=== PATIENT | female | born 1940 | race Caucasian/White ===

== ENCOUNTER → 2016-08-31 | Outpatient (CLI) | payer MEDICARE, BC ==
--- NOTE | 2016-09-02 10:37 | MM ---
Reason for exam: screening (asymptomatic). Last mammogram was performed 1 year and 5 months ago. History: Patient is postmenopausal. Family history of breast cancer in mother at age 70 and breast cancer in aunt at age 70. Benign stereotactic LETICIA of the right breast, May 2014. Took estrogen for 9 years beginning at age 54. Took progesterone for 9 years beginning at age 54. Physical Findings: A clinical breast exam by your physician is recommended on an annual basis and results should be correlated with mammographic findings. MG 3D Screening Mammo W/Cad Bilateral CC and MLO view(s) were taken. Prior study comparison: April 09, 2015, bilateral MG 3d diag mammo w/cad YASH. October 08, 2014, right breast MG diagnostic mammo RT w CAD. March 13, 2014, bilateral MG screening mammo w CAD. March 06, 2013, bilateral digital screening mammo w/CAD. There are scattered fibroglandular densities. Previous mammotome biopsy within the right breast. No significant changes when compared with prior studies. ASSESSMENT: Negative, BI-RAD 1 RECOMMENDATION: Routine screening mammogram of both breasts in 1 year.
== END | disposition home or self-care (01) ==
LOC: RADMAMWWP 15:16
PROVIDERS: ATTEND Preventive Medicine Public Health & General Preventive Medicine
DX: Z12.31 Encounter for screening mammogram for malignant neoplasm of breast (principal)
CPT/HCPCS: 77063; G0202

== ENCOUNTER → 2016-09-23 | Outpatient (CLI) | payer MEDICARE, BC ==
[2016-09-23 13:00] LABS: Blood Urea Nitrogen 14 mg/dL (7-17); Non-African American GFR(MDRD) >60 (>60 ml/min/1.73 sqM)
[2016-09-23 14:07] LABS: Vitamin B12 830 pg/mL
== END | disposition home or self-care (01) ==
LOC: LABWHC1 12:17
PROVIDERS: ATTEND Psychiatry & Neurology Neurology
DX: G62.9 Polyneuropathy, unspecified (principal)
CPT/HCPCS: 36415; 82565; 82607; 82746; 84520

== ENCOUNTER → 2016-10-12 | Outpatient (CLI) | payer MEDICARE, BC ==
--- NOTE | 2016-10-13 13:59 | MR ---
EXAMINATION TYPE: MR brain wo/w con DATE OF EXAM: 10/12/2016 COMPARISON: Prior MRI report dated 08/31/2015 HISTORY: Falling CONTRAST: Performed utilizing 15 mL intravenous MultiHance gadolinium contrast. TECHNIQUE: Multiplanar, multiecho imaging on a 3.0 Regi magnet is performed through the brain. Stud y is performed within 24 hours of arrival to the hospital. The craniovertebral junction is normal. The pituitary is normal. Diffusion-weighted imaging is performed. No abnormal hyperintensity is present to suggest an acute i ntracranial infarct or acute ischemic change. There are scattered punctate areas of hyperintensity on T2 and Inversion Recovery weighted sequences which are non-specific but can be related to microvascular ischemic changes. Ventricles and sulci are slightly prominent for the patient age. IMPRESSIONS: 1. Atrophy with chronic appearing white matter ischemic type changes.
== END | disposition home or self-care (01) ==
LOC: RADMRIMAIN 10:33
PROVIDERS: ATTEND Psychiatry & Neurology Neurology
DX: D49.6 Neoplasm of unspecified behavior of brain (principal); G45.2 Multiple and bilateral precerebral artery syndromes
CPT/HCPCS: 70553; A9577

== ENCOUNTER → 2017-10-17 | Outpatient (CLI) | payer MEDICARE, BC ==
--- NOTE | 2017-10-19 10:23 | MM ---
Reason for exam: screening (asymptomatic). Last mammogram was performed 1 year and 2 months ago. History: Patient is postmenopausal. Family history of breast cancer in mother at age 70 and breast cancer in aunt at age 70. Benign stereotactic LETICIA of the right breast, May 2014. Took estrogen for 9 years beginning at age 54. Took progesterone for 9 years beginning at age 54. Physical Findings: A clinical breast exam by your physician is recommended on an annual basis and results should be correlated with mammographic findings. MG 3D Screening Mammo W/Cad Bilateral CC and MLO view(s) were taken. Prior study comparison: August 31, 2016, bilateral MG 3d screening mammo w/cad. April 09, 2015, bilateral MG 3d diag mammo w/cad YASH. The breast tissue is heterogeneously dense. This may lower the sensitivity of mammography. Benign appearing bilateral calcifications. Right biopsy marker noted. No significant changes when compared with prior studies. ASSESSMENT: Benign, BI-RAD 2 RECOMMENDATION: Routine screening mammogram of both breasts in 1 year.
== END | disposition home or self-care (01) ==
LOC: RADMAMWWP 14:05
PROVIDERS: ATTEND Family Medicine
DX: Z12.31 Encounter for screening mammogram for malignant neoplasm of breast (principal)
CPT/HCPCS: 77063; 77067

== ENCOUNTER → 2018-10-27 | Outpatient (CLI) | payer MEDICARE, BC ==
--- NOTE | 2018-10-30 10:49 | MM ---
Reason for exam: screening (asymptomatic). Last mammogram was performed 1 year ago. History: Patient is postmenopausal. Family history of breast cancer in mother at age 70 and breast cancer in aunt at age 70. Benign stereotactic LETICIA of the right breast, May 2014. Took estrogen for 9 years beginning at age 54. Took progesterone for 9 years beginning at age 54. Physical Findings: A clinical breast exam by your physician is recommended on an annual basis and results should be correlated with mammographic findings. MG 3D Screening Mammo W/Cad Bilateral CC and MLO view(s) were taken. Prior study comparison: October 17, 2017, bilateral MG 3d screening mammo w/cad. August 31, 2016, bilateral MG 3d screening mammo w/cad. Benign appearing stable bilateral calcifications. Previous mammotome biopsy in the right breast. No significant changes when compared with prior studies. ASSESSMENT: Benign, BI-RAD 2 RECOMMENDATION: Routine screening mammogram of both breasts in 1 year.
== END | disposition home or self-care (01) ==
LOC: RADMAMWWP 10:49
PROVIDERS: ATTEND Family Medicine
DX: Z12.31 Encounter for screening mammogram for malignant neoplasm of breast (principal)
CPT/HCPCS: 77063; 77067

== ENCOUNTER → 2019-12-11 | Outpatient (CLI) | payer MEDICARE, BC ==
--- NOTE | 2019-12-12 11:55 | MM ---
Reason for exam: screening (asymptomatic). Last mammogram was performed 1 year and 1 month ago. History: Patient is postmenopausal. Family history of breast cancer in mother at age 70 and breast cancer in aunt at age 70. Benign stereotactic LETICIA of the right breast, May 2014. Took estrogen for 9 years beginning at age 54. Took progesterone for 9 years beginning at age 54. Physical Findings: A clinical breast exam by your physician is recommended on an annual basis and results should be correlated with mammographic findings. MG 3D Screening Mammo W/Cad Bilateral CC and MLO view(s) were taken. Prior study comparison: October 27, 2018, bilateral MG 3d screening mammo w/cad. October 17, 2017, bilateral MG 3d screening mammo w/cad. The breast tissue is heterogeneously dense. This may lower the sensitivity of mammography. No significant changes when compared with prior studies. ASSESSMENT: Benign, BI-RAD 2 RECOMMENDATION: Routine screening mammogram of both breasts in 1 year.
== END | disposition home or self-care (01) ==
LOC: RADMAMWWP 10:37
PROVIDERS: ATTEND Family Medicine
DX: Z12.31 Encounter for screening mammogram for malignant neoplasm of breast (principal)
CPT/HCPCS: 77063; 77067

== ENCOUNTER → 2021-01-13 | Outpatient (CLI) | payer MEDICARE, BC ==
--- NOTE | 2021-01-14 12:24 | MM ---
Reason for exam: screening (asymptomatic). Last mammogram was performed 1 year and 1 month ago. History: Patient is postmenopausal. Family history of breast cancer in mother at age 70 and breast cancer in aunt at age 70. Benign stereotactic core biopsy of the right breast, May 2014. Took estrogen for 9 years beginning at age 54. Took progesterone for 9 years beginning at age 54. Physical Findings: A clinical breast exam by your physician is recommended on an annual basis and results should be correlated with mammographic findings. MG 3D Screening Mammo W/Cad Bilateral CC and MLO view(s) were taken. Prior study comparison: December 11, 2019, bilateral MG 3d screening mammo w/cad. October 27, 2018, bilateral MG 3d screening mammo w/cad. October 17, 2017, bilateral MG 3d screening mammo w/cad. The breast tissue is heterogeneously dense. This may lower the sensitivity of mammography. There are benign appearing round, vascular calcifications bilaterally. Previous mammotome biopsy in the right breast. There is no discrete abnormality. ASSESSMENT: Benign, BI-RAD 2 RECOMMENDATION: Routine screening mammogram of both breasts in 1 year.
== END | disposition home or self-care (01) ==
LOC: RADMAMWWP 10:53
PROVIDERS: ATTEND Internal Medicine
DX: Z12.31 Encounter for screening mammogram for malignant neoplasm of breast (principal); Z78.0 Asymptomatic menopausal state; Z80.3 Family history of malignant neoplasm of breast
CPT/HCPCS: 77063; 77067

== ENCOUNTER 2022-01-01 10:30 | Inpatient (IN) | payer MEDICARE, BC ==
--- NOTE | 2022-01-01 10:45 | ED ---
Fall HPI - General Chief Complaint: Fall Stated Complaint: Fall Time Seen by Provider: 01/01/22 10:37 Source: patient, EMS, RN notes reviewed - History of Present Illness Initial Comments: Patient is a pleasant 81-year-old female presenting to the emergency room via EMS after turning in her kitchen earlier today awkwardly causing her to miss stepped and fall. She reports falling onto her left shoulder elbow bracing herself with her left wrist and falling onto her left hip. She has significant pain in all of those extremities. She also hit her head. She denies any dizziness, loss of consciousness pre-or post event, or new weakness. She is a past medical history significant for Parkinson's disease and reports falling occasionally. In addition to Parkinson's disease she has a past medical history significant for hyperlipidemia, hypertension, recurrent UTIs along with osteoarthritis with multiple joint replacements. - Related Data Home Medications Medication Instructions Recorded Confirmed DULoxetine HCL [Cymbalta] 30 mg PO BID 10/03/13 09/01/15 Pravastatin Sodium [Pravachol] 80 mg PO HS 10/03/13 09/01/15 amLODIPine [Norvasc] 10 mg PO DAILY 10/03/13 09/01/15 clonazePAM [KlonoPIN] 0.25 mg PO BID PRN 10/03/13 09/01/15 lamoTRIgine [LaMICtal] 100 mg PO BID 10/03/13 09/01/15 Aspirin EC [Ecotrin Low Dose] 81 mg PO DAILY 08/27/15 09/01/15 Budesonide [Budesonide EC] 9 mg PO QAM 08/27/15 09/01/15 Calcium & Magnesium (Unknown Dose) 1 tab PO DAILY 08/27/15 09/01/15 Meclizine [Antivert] 25 mg PO DIRECTED PRN 08/27/15 09/01/15 Multivitamins, Thera [Multivitamin 1 tab PO DAILY 08/27/15 09/01/15 (formulary)] Vitamin D (Unknown Dose) 1 tab PO DAILY 08/27/15 09/01/15 Previous Rx's Medication Instructions Recorded Docusate [Colace] 100 mg PO BID #60 capsule 09/02/15 HYDROcodone/APAP 5-325MG [[place] 1 - 2 each PO Q4-6H PRN #90 tab 09/02/15 5-325] Warfarin [Coumadin] 2.5 mg PO DAILY #1 tab 09/02/15 Ondansetron Odt [Zofran Odt] 4 mg PO Q8HR PRN 7 Days #21 tab 01/01/22 traMADol HCL 50 mg PO Q6H 3 Days #12 tab 01/01/22 Allergies Allergy/AdvReac Type Severity Reaction Status Date / Time morphine Allergy Nausea & Verified 01/01/22 10:46 Vomiting Sulfa (Sulfonamide AdvReac Unknown Nausea & Verified 01/01/22 10:46 Antibiotics) Vomiting Review of Systems ROS Statement: Those systems with pertinent positive or pertinent negative responses have been documented in the HPI. ROS Other: All systems not noted in ROS Statement are negative. Past Medical History Past Medical History: Hyperlipidemia, Hypertension, Osteoarthritis (OA), Renal Disease Additional Past Medical History / Comment(s): CHRONIC UTI, BLADDER LEAKAGE-WEARS PADS., OCCASIONAL VERTIGO,COLITIS, BROKE HIP dec 2013, BACK & LEFT LEG PAIN., HX OF FX RIGHT SHOULDER. USES CANE FOR YASH. LEGS NEUROPATHY. STATES FALLS FREQUENTLY History of Any Multi-Drug Resistant Organisms: None Reported Past Surgical History: Bladder Surgery, Hysterectomy, Joint Replacement, Orthopedic Surgery, Tonsillectomy, Tubal Ligation Additional Past Surgical History / Comment(s): BLADDER SUSPENSION W/ CYSTOCELE & RECTOCELE , LEFT SHOULDER SURGERY, LEFT HIP W/HARDWARE (2013). Past Anesthesia/Blood Transfusion Reactions: Motion Sickness Past Psychological History: Anxiety Past Alcohol Use History: Occasional - Past Family History Mother Family Medical History: Cancer Additional Family Medical History / Comment(s): BREAST & ESOPHAGUS CANCER General Exam General appearance: alert, in no apparent distress Head exam: Present: normocephalic, other (laceration left scalp post auricle) Eye exam: Present: normal appearance, PERRL, EOMI. Absent: scleral icterus, conjunctival injection, periorbital swelling ENT exam: Present: normal exam, mucous membranes moist Neck exam: Present: normal inspection. Absent: tenderness, lymphadenopathy Respiratory exam: Present: normal lung sounds bilaterally. Absent: respiratory distress, wheezes, rales, rhonchi, stridor Cardiovascular Exam: Present: regular rate, normal rhythm, normal heart sounds. Absent: systolic murmur, diastolic murmur, rubs, gallop, clicks GI/Abdominal exam: Present: soft, normal bowel sounds. Absent: distended, tenderness, guarding, rebound, rigid Left Shoulder Exam: Present: tenderness. Absent: full ROM, swelling, laceration, erythema Elbow exam: Present: tenderness, swelling, effusion. Absent: full ROM Forearm Wrist exam: Present: tenderness. Absent: full ROM, swelling, abrasion, deformity, crepitus, dislocation Vascular: Absent: vascular compromise Back exam: Present: normal inspection Neurological exam: Present: alert, oriented X3, CN II-XII intact Psychiatric exam: Present: normal affect, normal mood Skin exam: Present: other (Ecchymosis left elbow and left hip. Laceration scalp.). Absent: rash Course Vital Signs 01/01/22 01/01/22 01/01/22 10:34 13:31 15:15 Temperature 99.0 F Pulse Rate 72 71 73 Respiratory 18 18 18 Rate Blood Pressure 130/80 154/85 126/75 O2 Sat by Pulse 98 96 96 Oximetry Procedures - Orthopedic Splinting/Casting Injury #1 Side: left Upper Extremity Injury Location: elbow Upper Extremity Immobilizer: sling/shoulder immobilizer, posterior splint Medical Decision Making - Medical Decision Making 81-year-old female presenting via EMS after stumble and fall in her kitchen earlier today. She fell onto her left side and has pain in her left hip left wrist and left elbow left shoulder along with a laceration to her head. She is on aspirin. Will check CBC, CMP, PT/INR along with imaging of her left wrist, left elbow, left shoulder, head and neck. She denies any analgesic needs. CBC shows anemia above baseline hemoglobin. significant chemistry abnormalities. CT of brain and C-spine negative for fractures to C-spine no intracranial hemorrhage or midline shift. X-ray left shoulder and left wrist without acute fractures. X-ray left elbow shows acute displaced commuted fracture of the olecranon without dislocation. Suspect impacted transverse fracture through the left radial head without dislocation. Pain from x-rays to left elbow caused nausea. Zofran given with good relief. Continues to deny analgesic needs. Dr. Etienne called regarding fracture to the left elbow. He has requested computed tomography scan of left elbow to be completed prior to discharge and for patient to follow-up with him in the office next week. Replace posterior splint on left elbow along with arm sling. Will discharge home with tramadol and Zofran to utilize for pain and nausea. Case discussed with Dr. Andrews. Attempted to stand and ambulate patient to dress and evaluate for discharge and patient became dizzy and was escorted to the floor by the tech helping her address. Discharge home will be held. Observation admission was accepted and at this time will hold consult or so. Will order orthostatic blood pressures and Her home medications. - Lab Data Result diagrams: 01/01/22 10:52 01/01/22 10:52 Lab Results 01/01/22 01/01/22 01/01/22 Range/Units 10:52 10:52 10:52 WBC 7.1 (3.8-10.6) k/uL RBC 3.31 L (3.80-5.40) m/uL Hgb 11.0 L (11.4-16.0) gm/dL Hct 33.6 L (34.0-46.0) % MCV 101.3 H (80.0-100.0) fL MCH 33.2 (25.0-35.0) pg MCHC 32.7 (31.0-37.0) g/dL RDW 12.0 (11.5-15.5) % Plt Count 207 (150-450) k/uL MPV 7.5 Neutrophils % 81 % Lymphocytes % 9 % Monocytes % 6 % Eosinophils % 2 % Basophils % 0 % Neutrophils # 5.8 (1.3-7.7) k/uL Lymphocytes # 0.7 L (1.0-4.8) k/uL Monocytes # 0.4 (0-1.0) k/uL Eosinophils # 0.1 (0-0.7) k/uL Basophils # 0.0 (0-0.2) k/uL PT 10.8 (9.0-12.0) sec INR 1.0 (<1.2) Sodium 137 (137-145) mmol/L Potassium 3.7 (3.5-5.1) mmol/L Chloride 101 (98-107) mmol/L Carbon Dioxide 26 (22-30) mmol/L Anion Gap 10 mmol/L BUN 18 H (7-17) mg/dL Creatinine 0.73 (0.52-1.04) mg/dL Est GFR (CKD-EPI)AfAm >90 (>60 ml/min/1.73 sqM) Est GFR (CKD-EPI)NonAf 78 (>60 ml/min/1.73 sqM) Glucose 111 H (74-99) mg/dL POC Glucose (mg/dL) (70-110) mg/dL POC Glu Python Developer ID Calcium 9.7 (8.4-10.2) mg/dL Total Bilirubin 0.6 (0.2-1.3) mg/dL AST 32 (14-36) U/L ALT 10 (4-34) U/L Alkaline Phosphatase 50 (38-126) U/L Total Protein 6.9 (6.3-8.2) g/dL Albumin 4.1 (3.5-5.0) g/dL 01/01/22 Range/Units 15:48 WBC (3.8-10.6) k/uL RBC (3.80-5.40) m/uL Hgb (11.4-16.0) gm/dL Hct (34.0-46.0) % MCV (80.0-100.0) fL MCH (25.0-35.0) pg MCHC (31.0-37.0) g/dL RDW (11.5-15.5) % Plt Count (150-450) k/uL MPV Neutrophils % % Lymphocytes % % Monocytes % % Eosinophils % % Basophils % % Neutrophils # (1.3-7.7) k/uL Lymphocytes # (1.0-4.8) k/uL Monocytes # (0-1.0) k/uL Eosinophils # (0-0.7) k/uL Basophils # (0-0.2) k/uL PT (9.0-12.0) sec INR (<1.2) Sodium (137-145) mmol/L Potassium (3.5-5.1) mmol/L Chloride (98-107) mmol/L Carbon Dioxide (22-30) mmol/L Anion Gap mmol/L BUN (7-17) mg/dL Creatinine (0.52-1.04) mg/dL Est GFR (CKD-EPI)AfAm (>60 ml/min/1.73 sqM) Est GFR (CKD-EPI)NonAf (>60 ml/min/1.73 sqM) Glucose (74-99) mg/dL POC Glucose (mg/dL) 143 H (70-110) mg/dL POC Glu Python Developer ID Sherry Rutledge Calcium (8.4-10.2) mg/dL Total Bilirubin (0.2-1.3) mg/dL AST (14-36) U/L ALT (4-34) U/L Alkaline Phosphatase (38-126) U/L Total Protein (6.3-8.2) g/dL Albumin (3.5-5.0) g/dL - Radiology Data Radiology results: report reviewed, image reviewed X-ray left elbow finding acute displaced comminuted fracture of the olecranon without dislocation. There is suspected impacted transverse fracture through the left radial head without dislocation. X-ray left shoulder complete shows chronic rotator cuff tear left shoulder. Left shoulder prosthesis with advanced degenerative changes. No acute fracture or dislocation. X-ray hips bilaterally and AP pelvis shows bilaterally hips are intact no acute fractures are evident. Left hip prosthesis in place. X-ray left wrist complete shows no acute displaced fracture of the left wrist. CT brain and C-spine without contrast shows no acute fracture or dislocation evident in the cervical spine. No acute intracranial hemorrhage or midline shift. Disposition Clinical Impression: Fall, Fracture of olecranon process, left, closed Disposition: ADMITTED IP TO THIS HOSP Condition: Stable Prescriptions: traMADol HCL 50 mg PO Q6H 3 Days #12 tab Ondansetron Odt [Zofran Odt] 4 mg PO Q8HR PRN 7 Days #21 tab PRN Reason: Is patient prescribed a controlled substance at d/c from ED?: Yes Referrals: Lux Michaels MD [Primary Care Provider] - 1-2 days Reece Etienne DO [Doctor of Osteopathic Medicine] - 01/05/22 Time of Disposition: 16:21
[2022-01-01 11:03] LABS: Basophils % (A) 0 %; Eosinophils # (A) 0.1 k/uL (0-0.7); Eosinophils % (A) 2 %; HCT 33.6 % (34.0-46.0); Lymphocytes # (A) 0.7 k/uL (1.0-4.8); Lymphocytes % (A) 9 %; MCH 33.2 pg (25.0-35.0); MCHC 32.7 g/dL (31.0-37.0); MCV 101.3 fL (80.0-100.0); Mean Platelet Volume 7.5; Monocytes # (A) 0.4 k/uL (0-1.0); Monocytes % (A) 6 %; Neutrophils # (A) 5.8 k/uL (1.3-7.7); Neutrophils % (A) 81 %; Platelet Count 207 k/uL (150-450); RBC 3.31 m/uL (3.80-5.40); WBC 7.1 k/uL (3.8-10.6)
[2022-01-01 11:12] LABS: Prothrombin Time 10.8 sec (9.0-12.0)
[2022-01-01 11:25] LABS: ALT 10 U/L (4-34); AST 32 U/L (14-36); African American GFR (CKD) >90 (>60 ml/min/1.73 sqM); Albumin 4.1 g/dL (3.5-5.0); Alkaline Phosphatase 50 U/L (38-126); Anion Gap 10 mmol/L; Blood Urea Nitrogen 18 mg/dL (7-17); Calcium 9.7 mg/dL (8.4-10.2); Carbon Dioxide 26 mmol/L (22-30); Chloride 101 mmol/L (98-107); Glucose 111 mg/dL (74-99); Non-African American GFR(CKD) 78 (>60 ml/min/1.73 sqM); Potassium 3.7 mmol/L (3.5-5.1); Sodium 137 mmol/L (137-145); Total Bilirubin 0.6 mg/dL (0.2-1.3); Total Protein 6.9 g/dL (6.3-8.2)
--- NOTE | 2022-01-01 11:34 | CT ---
EXAMINATION TYPE: CT brain adan stubbs DATE OF EXAM: 01/01/2022 COMPARISON: NONE HISTORY: Fall injury with headache and neck pain CT DLP: 1270.5 mGycm. Automated Exposure Control for Dose Reduction was Utilized. TECHNIQUE: CT scan of the head and cervical spine are performed without contrast. FINDINGS: There is no acute intracranial hemorrhage or midline shift identified. Mild to moderate v entricular and sulcal prominence. Moderate to severe low-attenuation in the deep and periventricular white matter. The calvarium is intact. The visualized sinuses are clear. Nonvisualization of bilater al lens likely product of prior bilateral cataract surgery. Cervical spine is visualized in its entirety from C1 through upper thoracic levels and demonstrates d extroconvex scoliosis centered in the midthoracic spine without evidence of acute fracture or disloca tion. Prevertebral soft tissue appears within normal limits. The C1-C2 articulation is within laura l limits on the coronal images. Reversal of normal cervical curvature on sagittal images. Slight gra de 1 anterolisthesis C2 on C3 and C3 on C4 along with C7 on T1. More prominent grade 1 anterolisthesi s C4 on C5. Vertebral body heights are maintained. Moderate disc space narrowing C5-C6 and C6-C7 leve ls with moderate to advanced spurring. Posterior calcified disc herniations and spurring of the anterior thecal sac at C5-C6 and C6-C7 level s on sagittal and axial images. Thyroid gland appears within normal limits. Lung apices show no pneum othorax. Note is made of old healed posterior right fifth rib fracture axial image 115. IMPRESSION: 1. There is no acute fracture or dislocation evident in the cervical spine. 2. No acute intracranial hemorrhage or midline shift is seen.
[2022-01-01] MEDS ORDERED: LIDOCAINE 1% INJ 10MG/ML (20 ML MDV) SQ STA (11:51)
--- NOTE | 2022-01-01 12:15 | XR ---
EXAMINATION TYPE: XR wrist complete LT DATE OF EXAM: 01/01/2022 CLINICAL HISTORY: Fall injury with pain TECHNIQUE: Frontal, lateral and oblique images of the left wrist are obtained. 4 view scaphoid view is performed. COMPARISON: None FINDINGS: Osseous structures are demineralized which is noted to lower radiographic sensitivity. Ther e is overlying metallic button at level of the distal radius with old healed fracture deformity. Mode [id number] narrowing and spurring at the base of the first metacarpal. No acute displaced fractur e is seen. Narrowing and possible some ossific fusion of the capitate and hamate bones. IMPRESSION: There is no acute displaced fracture in the left wrist.
--- NOTE | 2022-01-01 12:20 | XR ---
EXAMINATION TYPE: XR Hip Bilateral and AP pelvis DATE OF EXAM: 01/01/2022 COMPARISON: None HISTORY: Fall, pain TECHNIQUE: AP pelvis and two-view right hip FINDINGS: There is a left hip prosthesis. Sacroiliac joints and symphysis pubis appear normal. No acu te fractures are evident. Femoral head articulates with the acetabulum. Bilateral hips appear intact. No acute fractures are evident. IMPRESSION: 1. No acute osseous abnormalities bilateral hips
--- NOTE | 2022-01-01 12:27 | XR ---
EXAMINATION TYPE: XR shoulder complete LT DATE OF EXAM: 01/01/2022 COMPARISON: NONE HISTORY: Pain TECHNIQUE: Shoulder examined in 2 projections FINDINGS: There is a left humeral prosthesis. The humeral component is elevated in relation to the glenoid sugg esting underlying chronic rotator cuff tear. Degenerative changes and ossifications are about the lef t shoulder. The acromio-clavicular junction is normal. No acute fractures or dislocations are evident. A follow up study can be performed 7-10 days from acute trauma for continued pain. IMPRESSION: 1. Chronic rotator cuff tear left shoulder. 2. Left shoulder prosthesis with advanced degenerative changes at the left shoulder
[2022-01-01] MEDS ORDERED: ONDANSETRON 4 MG/2 ML VIAL IVP STA (13:24)
--- NOTE | 2022-01-01 13:44 | XR ---
EXAMINATION TYPE: XR elbow limited LT DATE OF EXAM: 01/01/2022 CLINICAL HISTORY: Falling injury with pain TECHNIQUE: Frontal and lateral images of the left elbow are obtained. COMPARISON: None FINDINGS: There is acute displaced comminuted fracture of the olecranon without dislocation. There i s suspected impacted transverse fracture through the left radial head without dislocation. Associated abnormal fat pad sign with anterior bowing is seen. There is focal oval subcutaneous prominence over the olecranon suspicious for subcutaneous hematoma. IMPRESSION: As above.
[2022-01-01 15:49] LABS: Glucose,Whole Blood 143 mg/dL (70-110)
--- NOTE | 2022-01-01 15:49 | CT ---
EXAMINATION TYPE: CT elbow LT wo con DATE OF EXAM: 01/01/2022 COMPARISON: Left elbow x-ray earlier today HISTORY: Olecranon fx. Abnormal x-ray. Fracture after fall injury. CT DLP: 339.9 mGycm Automated exposure control for dose reduction was used. FINDINGS: Evaluation suboptimal as patient unable to extend the elbow joint for ideal imaging. There is acute comminuted displaced fracture through the olecranon with several small fracture fragme nts involving the anterior aspect and a slightly displaced transverse intra-articular fracture throug h the posterior portion. Ulnohumeral articulation grossly maintained. There is an impacted transverse fracture through the radial head confirmed. Radial head articulation grossly maintained. No acute fracture in the distal humerus clearly seen. Moderate subcutaneous edema and hematoma along the dorsal aspect is noted. IMPRESSION: As above. Findings correlate with recent x-rays. Type C AO Classification.
[2022-01-01] MEDS ORDERED: ACETAMINOPHEN TAB 325 MG TAB PO PRN (16:43)
[2022-01-01] MEDS ORDERED: ONDANSETRON 4 MG/2 ML VIAL IVP PRN (16:43)
[2022-01-01] MEDS ORDERED: NALOXONE 0.4 MG/ML 1 ML VIAL IV PRN ×2 (16:43→16:48)
[2022-01-01] MEDS ORDERED: DONEPEZIL 10 MG TAB PO STA (16:50)
[2022-01-01] MEDS ORDERED: amLODIPine 5 MG TAB PO STA (16:56)
[2022-01-01] MEDS ORDERED: PRAVASTATIN SODIUM 80 MG TAB PO STA (16:56)
[2022-01-01] MEDS ORDERED: MECLIZINE 25 MG TAB PO PRN (16:59)
[2022-01-01] MEDS: SODIUM CHLORIDE 0.9% 1,000 ML IV SCH (17:13)
--- NOTE | 2022-01-01 17:23 | P.HPIM ---
History of Present Illness H&P Date: 01/01/22 Patient is an 81-year-old female with PMH of Parkinson's disorder, anxiety, hypertension, dyslipidemia, chronic UTIs that presents the ED after mechanical fall. Patient reports turning in her kitchen earlier awkwardly which caused her to lose her footing and fall. She fell onto her left shoulder and elbow bracing herself with her left wrist. She did not have any dizziness or syncopal episode at that time. She was worked up in the ED. CT head was negative for acute process. X-ray of the wrist, hip, shoulder was negative. CT left elbow showed acute comminuted displaced fracture through the olecranon with several small fracture fragments involving the anterior aspect and a slightly displaced transverse intra-articular fracture through the posterior portion. Orthopedic surgery was curb sided in the ED and recommended outpatient follow-up. Her elbow is casted and she was placed in a sling. As she stood up, patient reports feeling lightheaded. Lightheadedness was associated with nausea. She lowered herself to the ground. She denies any syncopal episode or head trauma. She denies any headache, lower extremity edema, vomiting, fever or chills, cough, chest pain, shortness of breath, palpitations, changes in urination or bowel habits. No changes in appetite or weight. She denies any numbness/weakness/tingling of extremities. Her vital signs have been stable. Review of systems was performed and is negative except above. General: [non toxic], [no distress], [appears at stated age] Derm: [warm], [dry] Head: [atraumatic], [normocephalic], [symmetric] Eyes: [EOMI], [no lid lag], [anicteric sclera] Mouth: [no lip lesion], [mucus membranes moist] Cardiovascular: [S1S2 reg], [no murmur] Lungs: [CTA bilateral], [no rhonchi, no rales] , [no accessory muscle use] Abdominal: [soft], [ nontender to palpation], [no guarding], [no appreciable organomegaly] Ext: [no gross muscle atrophy], [resting tremor], [no contractures], [left upper extremity casted and in a sling] Neuro: [ CN II-XI grossly intact], [no focal neuro deficits] Psych: [Alert], [oriented], [appropriate affect] #Lightheadedness #Left elbow fracture #Macrocytic anemia #Elevated BUN Chronic conditions: Parkinson's disorder, anxiety and depression, hypertension, dyslipidemia Patient presents with lightheadedness she went from a laying to a standing position. She did not lose consciousness. She reports no head trauma in the ED. Orthostatic vital signs will be ordered. Patient be placed on telemetry monitoring. Fall precautions ordered. Start normal saline at 75 mL per hour. PT and OT will be consulted. Patient will need to follow-up with orthopedic surgery in the outpatient setting. Obtain B12 and folate for macrocytosis. Elevated BUN likely due to dehydration. Plans to repeat BMP tomorrow morning after IV hydration. Restart Sinemet and Rivastigmine for history of Parkinsons. Restart Lamictal and Cymbalta with Klonopin as needed for anxiety and depression. Restart amlodipine for history of hypertension. Her pravastatin for history of dyslipidemia. DVT prophylaxis: [Heparin] Discussed with: [Patient, ED physician, family] Anticipated discharge: [1-2 days] Anticipated discharge place: [Home] A total of [35] minutes was spent on the care of this complex patient more than 50% of the time was spent in counseling and care coordination. Patient injured her decision maker if she can't make decisions for herself. Patient would like to be full code. Past Medical History Past Medical History: Hyperlipidemia, Hypertension, Osteoarthritis (OA), Renal Disease Additional Past Medical History / Comment(s): CHRONIC UTI, BLADDER LEAKAGE-WEARS PADS., OCCASIONAL VERTIGO,COLITIS, BROKE HIP dec 2013, BACK & LEFT LEG PAIN., HX OF FX RIGHT SHOULDER. USES CANE FOR YASH. LEGS NEUROPATHY. STATES FALLS FR EQUENTLY History of Any Multi-Drug Resistant Organisms: None Reported Past Surgical History: Bladder Surgery, Hysterectomy, Joint Replacement, Orthope dic Surgery, Tonsillectomy, Tubal Ligation Additional Past Surgical History / Comment(s): BLADDER SUSPENSION W/ CYSTOCELE & RECTOCELE , LEFT SHOULDER SURGERY, LEFT HIP W/HARDWARE (2013). Past Anesthesia/Blood Transfusion Reactions: Motion Sickness Past Psychological History: Anxiety Past Alcohol Use History: Occasional - Past Family History Mother Family Medical History: Cancer Additional Family Medical History / Comment(s): BREAST & ESOPHAGUS CANCER Medications and Allergies Home Medications Medication Instructions Recorded Confirmed Type Pravastatin Sodium [Pravachol] 80 mg PO HS 10/03/13 09/01/15 History lamoTRIgine [LaMICtal] 100 mg PO BID 10/03/13 09/01/15 History Aspirin EC [Ecotrin Low Dose] 81 mg PO DAILY 08/27/15 09/01/15 History Ascorbic Acid [Vitamin C] 500 mg PO DAILY 01/01/22 01/01/22 History Calcium Carbonate [Calcium] 600 mg PO DAILY 01/01/22 01/01/22 History Carbidopa/Levodopa 1 tab PO QID@07,11,15,19 01/01/22 01/01/22 History [Carbidopa-Levodopa 25-100 Tab] DULoxetine HCL [Cymbalta] 60 mg PO HS 01/01/22 01/01/22 History Meloxicam [Mobic] 15 mg PO DAILY 01/01/22 01/01/22 History Menthol-Zinc Oxide Oint 1 applic TOPICAL BID 01/01/22 01/01/22 History [Calmoseptine Ointment] Multivit-Min/Iron/Folic/Lutein 1 tab PO DAILY 01/01/22 01/01/22 History [Centrum Silver Women Tablet] Omeprazole 40 mg PO DAILY 01/01/22 01/01/22 History Ondansetron Odt [Zofran Odt] 4 mg PO Q8HR PRN 7 Days #21 tab 01/01/22 Rx Oxybutynin Chloride 5 mg PO BID 01/01/22 01/01/22 History Rivastigmine Tartrate [Exelon] 3 mg PO BID 01/01/22 01/01/22 History Trimethoprim [Trimpex] 100 mg PO DAILY 01/01/22 01/01/22 History amLODIPine [Norvasc] 5 mg PO DAILY 01/01/22 01/01/22 History clonazePAM [Klonopin ODT] 0.25 mg PO BID PRN 01/01/22 01/01/22 History dexAMETHasone [Decadron Elixir] 0.5 mg PO BID PRN 01/01/22 01/01/22 History polyethylene glycoL 3350 [Miralax] 17 gm PO DAILY PRN 01/01/22 01/01/22 History traMADol HCL 50 mg PO Q6H 3 Days #12 tab 01/01/22 Rx Allergies Allergy/AdvReac Type Severity Reaction Status Date / Time morphine Allergy Nausea & Verified 01/01/22 16:59 Vomiting Sulfa (Sulfonamide AdvReac Unknown Nausea & Verified 01/01/22 16:59 Antibiotics) Vomiting mesalamine [From Lialda] AdvReac Hallucinations, Verified 01/01/22 16:59 aggression Physical Exam Vitals: Vital Signs Temp Pulse Resp BP Pulse Ox 01/01/22 15:15 73 18 126/75 96 01/01/22 13:31 71 18 154/85 96 01/01/22 10:34 99.0 F 72 18 130/80 98 Intake and Output 01/01/22 01/01/22 01/01/22 06:59 14:59 22:59 Other: Weight 57.606 kg Results CBC & Chem 7: 01/01/22 10:52 01/01/22 10:52 Labs: Abnormal Lab Results - Last 24 Hours (Table) 01/01/22 01/01/22 01/01/22 Range/Units 10:52 10:52 15:48 RBC 3.31 L (3.80-5.40) m/uL Hgb 11.0 L (11.4-16.0) gm/dL Hct 33.6 L (34.0-46.0) % MCV 101.3 H (80.0-100.0) fL Lymphocytes # 0.7 L (1.0-4.8) k/uL BUN 18 H (7-17) mg/dL Glucose 111 H (74-99) mg/dL POC Glucose (mg/dL) 143 H (70-110) mg/dL
[2022-01-01] MEDS: clonazePAM 0.5 MG TAB PO PRN (17:28)
[2022-01-01] MEDS: traMADol 50 MG TAB PO PRN (17:32)
[2022-01-01] MEDS ORDERED: CARBIDOPA-LEVODOPA 25-100 MG 1 EACH TAB PO ONE (18:00)
[2022-01-01] MEDS: CARBIDOPA-LEVODOPA 25-100 MG 1 EACH TAB PO SCH (21:46)
[2022-01-01] MEDS: lamoTRIgine 100 MG TAB PO SCH (21:46)
[2022-01-01] MEDS: HEPARIN SODIUM,PORCINE/PF 5,000 UNIT/0.5 ML SYRINGE SQ SCH (21:46)
[2022-01-01] MEDS: OXYBUTYNIN CHLORIDE 5 MG TAB PO SCH (21:46)
[2022-01-02] MEDS: traMADol 50 MG TAB PO PRN (01:19)
[2022-01-02] MEDS: clonazePAM 0.5 MG TAB PO PRN ×2 (06:25→17:25)
[2022-01-02] MEDS: PANTOPRAZOLE 40 MG TABLET PO SCH (06:25)
[2022-01-02] MEDS ORDERED: DONEPEZIL 10 MG TAB PO SCH (09:00)
[2022-01-02] MEDS: amLODIPine 5 MG TAB PO SCH (09:21)
[2022-01-02] MEDS: OXYBUTYNIN CHLORIDE 5 MG TAB PO SCH ×2 (09:21→20:52)
[2022-01-02] MEDS: lamoTRIgine 100 MG TAB PO SCH ×2 (09:21→20:52)
[2022-01-02] MEDS: CARBIDOPA-LEVODOPA 25-100 MG 1 EACH TAB PO SCH ×4 (09:21→20:52)
[2022-01-02] MEDS: ASPIRIN 81 MG PO SCH (09:21)
[2022-01-02 10:38] LABS: Glucose,Whole Blood 127 mg/dL (70-110)
[2022-01-02 10:52] LABS: Basophils % (A) 0 %; Eosinophils # (A) 0.1 k/uL (0-0.7); Eosinophils % (A) 2 %; HCT 28.6 % (34.0-46.0); Lymphocytes # (A) 0.9 k/uL (1.0-4.8); Lymphocytes % (A) 16 %; MCH 32.9 pg (25.0-35.0); MCHC 32.4 g/dL (31.0-37.0); MCV 101.7 fL (80.0-100.0); Mean Platelet Volume 8.1; Monocytes # (A) 0.5 k/uL (0-1.0); Monocytes % (A) 9 %; Neutrophils # (A) 4.1 k/uL (1.3-7.7); Neutrophils % (A) 72 %; Platelet Count 191 k/uL (150-450); RBC 2.81 m/uL (3.80-5.40); RDW 12.1 % (11.5-15.5); WBC 5.7 k/uL (3.8-10.6)
[2022-01-02 10:56] LABS: HGB 9.3 gm/dL (11.4-16.0)
[2022-01-02 11:08] LABS: Potassium 3.9 mmol/L (3.5-5.1)
--- NOTE | 2022-01-02 14:47 | P.PN ---
Subjective Hospital course: 81-year-old female with past medical history of Parkinson's, anxiety, hypertension, dyslipidemia, chronic UTIs presented after a fall. She sustained a left olecranon fracture. Her elbow was casted and placed in a sling, and patient will follow-up with orthopedic surgery as an outpatient. However, while in the emergency as well as on the floors, patient has been complaining of lightheadedness/presyncopal episodes each time she stands. Subjective: Patient seen and examined at bedside. She claims that she still has pain at the left elbow which time she moves. She continues to have lightheadedness after standing. Overnight she did require straight cath or acute urinary retention. She denies any nausea, vomiting, headache, abdominal pain, diarrhea or constipation fevers, chills, chest pain, shortness of breath, palpitations. Pertinent positives and negatives as discussed above, a complete review of systems was performed and all other systems are negative. Vital signs reviewed. General: nontoxic, no distress, appears at stated age Derm: warm, dry Head: atraumatic, normocephalic, symmetric Eyes: EOMI, no lid lag, anicteric sclera Mouth: no lip lesion, mucus membranes moist Cardiovascular: S1S2 reg, no murmur Lungs: Minimal rales at the bases bilaterally, no accessory muscle use Abdominal: soft, nontender to palpation, no guarding, no appreciable organ omegaly Ext: no gross muscle atrophy, trace peripheral edema, no contractures Neuro: CN II-XI grossly intact, no focal neuro deficits Psych: Alert, oriented, appropriate affect Assessment and plan: Presyncope Elevated BUN Status post fall Left elbow fracture -Negative orthostatic vitals -On IV fluids for elevated BUN -Fall precautions -PT/OT consulted -Unsure if presyncope related to cardiac or autonomic dysfunction -will consult neurology and obtain echocardiogram Macrocytic anemia -B12 and folic acid pending F: PO E: replete PRN N: Heart healthy A: With assistance DVT ppx: heparin SQ Full code Dispo: Patient is currently unsafe discharge given significant fall risk. She requires further workup for ongoing presyncope/lightheadedness. She will also need evaluation by physical therapy/occupational therapy. Objective - Vital Signs Vital signs: Vital Signs Temp 97.8 F 01/02/22 12:47 Pulse 69 09/03/22 12:47 Resp 18 01/02/22 12:47 BP 111/65 01/02/22 12:47 Pulse Ox 96 01/02/22 12:47 FiO2 Intake & Output 01/01/22 01/02/22 01/02/22 18:59 06:59 18:59 Intake Total 658 Output Total 750 Balance -750 658 Weight 57.606 kg 57.606 kg Intake: Oral 658 Output: Urine 750 Straight 750 Other: Voiding Method Diaper Diaper # Voids 0 1 - Labs CBC & Chem 7: 01/02/22 09:52 01/02/22 09:52 Labs: Abnormal Lab Results - Last 24 Hours (Table) 01/01/22 01/02/22 01/02/22 Range/Units 15:48 09:52 09:52 RBC 2.81 L (3.80-5.40) m/uL Hgb 9.3 L D (11.4-16.0) gm/dL Hct 28.6 L (34.0-46.0) % MCV 101.7 H (80.0-100.0) fL Lymphocytes # 0.9 L (1.0-4.8) k/uL Sodium 136 L (137-145) mmol/L BUN 23 H (7-17) mg/dL Glucose 119 H (74-99) mg/dL POC Glucose (mg/dL) 143 H (70-110) mg/dL 01/02/22 Range/Units 10:36 RBC (3.80-5.40) m/uL Hgb (11.4-16.0) gm/dL Hct (34.0-46.0) % MCV (80.0-100.0) fL Lymphocytes # (1.0-4.8) k/uL Sodium (137-145) mmol/L BUN (7-17) mg/dL Glucose (74-99) mg/dL POC Glucose (mg/dL) 127 H (70-110) mg/dL
[2022-01-02] MEDS: SODIUM CHLORIDE 0.9% 1,000 ML IV SCH (18:43)
[2022-01-02] MEDS: HEPARIN SODIUM,PORCINE/PF 5,000 UNIT/0.5 ML SYRINGE SQ SCH ×2 (18:44→20:51)
[2022-01-02] MEDS: DONEPEZIL 10 MG TAB PO SCH (20:51)
[2022-01-03] MEDS: traMADol 50 MG TAB PO PRN ×2 (01:46→18:18)
[2022-01-03] MEDS: SODIUM CHLORIDE 0.9% 1,000 ML IV SCH ×2 (05:23→18:34)
[2022-01-03] MEDS: PANTOPRAZOLE 40 MG TABLET PO SCH (06:30)
[2022-01-03] MEDS: CARBIDOPA-LEVODOPA 25-100 MG 1 EACH TAB PO SCH ×4 (08:34→22:03)
[2022-01-03] MEDS: amLODIPine 5 MG TAB PO SCH (08:34)
[2022-01-03] MEDS: OXYBUTYNIN CHLORIDE 5 MG TAB PO SCH ×2 (08:34→20:47)
[2022-01-03] MEDS: ASPIRIN 81 MG PO SCH (08:34)
[2022-01-03] MEDS: lamoTRIgine 100 MG TAB PO SCH ×2 (08:34→20:47)
[2022-01-03] MEDS: clonazePAM 0.5 MG TAB PO PRN (08:36)
--- NOTE | 2022-01-03 09:52 | P.CNNES ---
History of Present Illness Consult date: 01/03/22 Requesting physician: Reinier Morales Reason for Consult: hx of prarkinson's, has presyncope History of Present Illness: This is an 81-year-old woman with medical history of Parkinson's disease, hypertension, dyslipidemia, chronic urinary tract infection who presented to the emergency department on 01/01/2022 after a fall. Patient was in her kitchen and turned around and took one step then fell. She denies feeling lightheaded or dizzy prior or after. She denies any symptoms prior or missing a step. As a result in she fell on her left shoulder elbow left wrist as well as hip. She denies loss of consciousness before after the episode. As stated earlier she has history of Parkinson's disease and has falling episodes occasionally. She sustained a left olecrenon fracture. As a result her elbow was casted and placed in a sling. She has some episodes of feeling lightheadedness when she stands up and takes her 1-2 minutes to resolve.. For patient's Parkinson's patient is on [place] 1 [place] [address] at 7, 11, 1519 100. Patient is also on Klonopin 0.251 tablet twice a day, Lamictal 100 mg 1 tablet twice a day prescribed by her neurologist (Alana Cohen over [place], [place]). She is not sure why she is on Lamictal. Patient had Parkinson's disease since about 2016 and had possible falls since 2017. Some other workup in our facility consisted of: Orthostatic vitals is supine blood pressure is 109/72 sitting is 105/67 and standing is 93/63 CT of cervical spine is reported as there is no acute fracture or dislocation evident in the cervical spine. I personally reviewed the CT and I feel like this C5-C6 there is central compression CT of the head is reported no acute intracranial hemorrhage or midline shift is seen. I personally reviewed the CT of the head and there is no acute or subacute ischemia no tubercle hemorrhage. Review of Systems Review of system: The 12 point system was reviewed and apparent positive and negative per HPI. Past Medical History Past Medical History: Hyperlipidemia, Hypertension, Musculoskeletal Disorder, Osteoarthritis (OA) Additional Past Medical History / Comment(s): CHRONIC UTI, BLADDER LEAKAGE-WEARS PADS., OCCASIONAL VERTIGO,COLITIS, BROKE HIP dec 2013, BACK & LEFT LEG PAIN., HX OF FX RIGHT SHOULDER. USES CANE FOR YASH. LEGS NEUROPATHY. STATES FALLS FREQUENTLY History of Any Multi-Drug Resistant Organisms: None Reported Past Surgical History: Bladder Surgery, Hysterectomy, Joint Replacement, Orthopedic Surgery, Tonsillectomy, Tubal Ligation Additional Past Surgical History / Comment(s): BLADDER SUSPENSION W/ CYSTOCELE & RECTOCELE , LEFT SHOULDER SURGERY, LEFT HIP W/HARDWARE (2013). Past Anesthesia/Blood Transfusion Reactions: No Reported Reaction, Motion Sickness Past Psychological History: Anxiety Smoking Status: Never smoker Past Alcohol Use History: Occasional Past Drug Use History: None Reported - Past Family History Mother Family Medical History: Cancer Additional Family Medical History / Comment(s): BREAST & ESOPHAGUS CANCER Medications and Allergies Home Medications Medication Instructions Recorded Confirmed Type Pravastatin Sodium [Pravachol] 80 mg PO HS 10/03/13 01/01/22 History lamoTRIgine [LaMICtal] 100 mg PO BID 10/03/13 01/01/22 History Aspirin EC [Ecotrin Low Dose] 81 mg PO HS 08/27/15 01/01/22 History Ascorbic Acid [Vitamin C] 500 mg PO DAILY 01/01/22 01/01/22 History Calcium Carbonate [Calcium] 600 mg PO DAILY 01/01/22 01/01/22 History Carbidopa/Levodopa 1 tab PO QID@07,11,15,19 01/01/22 01/01/22 History [Carbidopa-Levodopa 25-100 Tab] DULoxetine HCL [Cymbalta] 60 mg PO HS 01/01/22 01/01/22 History Meloxicam [Mobic] 15 mg PO DAILY 01/01/22 01/01/22 History Menthol-Zinc Oxide Oint 1 applic TOPICAL BID 01/01/22 01/01/22 History [Calmoseptine Ointment] Multivit-Min/Iron/Folic/Lutein 1 tab PO DAILY 01/01/22 01/01/22 History [Centrum Silver Women Tablet] Omeprazole 40 mg PO DAILY 01/01/22 01/01/22 History Ondansetron Odt [Zofran Odt] 4 mg PO Q8HR PRN 7 Days #21 tab 01/01/22 Rx Oxybutynin Chloride 5 mg PO BID 01/01/22 01/01/22 History Rivastigmine Tartrate [Exelon] 3 mg PO BID 01/01/22 01/01/22 History Trimethoprim [Trimpex] 100 mg PO DAILY 01/01/22 01/01/22 History amLODIPine [Norvasc] 5 mg PO DAILY 01/01/22 01/01/22 History clonazePAM [Klonopin ODT] 0.25 mg PO BID PRN 01/01/22 01/01/22 History dexAMETHasone [Decadron Elixir] 0.5 mg PO BID PRN 01/01/22 01/01/22 History polyethylene glycoL 3350 [Miralax] 17 gm PO DAILY PRN 01/01/22 01/01/22 History traMADol HCL 50 mg PO Q6H 3 Days #12 tab 01/01/22 Rx Allergies Allergy/AdvReac Type Severity Reaction Status Date / Time morphine Allergy Nausea & Verified 01/01/22 16:59 Vomiting Sulfa (Sulfonamide AdvReac Unknown Nausea & Verified 01/01/22 16:59 Antibiotics) Vomiting mesalamine [From Lialda] AdvReac Hallucinations, Verified 01/01/22 16:59 aggression Physical Examination - Vital Signs Vital Signs: Vital Signs Temp Pulse Pulse Resp BP Pulse Ox 01/03/22 04:00 98.5 F 84 18 134/84 98 01/03/22 00:00 98.8 F 73 18 109/59 99 01/02/22 20:00 99.7 F H 76 105 H 18 116/77 96 01/02/22 16:00 98.0 F 82 18 115/64 98 01/02/22 14:00 18 01/02/22 12:47 97.8 F 69 18 111/65 96 Intake and Output 01/02/22 01/03/22 01/03/22 22:59 06:59 14:59 Intake Total 118 Balance 118 Intake: Oral 118 Other: Voiding Method Diaper Diaper # Voids 2 3 GENERAL: The patient is lying in bed and is not in acute distress. CHEST: The heart rate is regular rate rhythm. No murmurs to auscultation. LUNG: Clear to auscultation bilaterally no wheezing noted throughout. Not labored breathing. ABDOMEN/GI: Bowel sounds present in all 4 quadrants. No tenderness to palpation throughout. NEUROLOGICAL: Higher mental function: The patient is awake, alert, oriented to self, place and time. Patient is following commands. No aphasia and no neglect. Cranial nerves: The pupils are round, equal and reactive to light and accommodation. Visual de león are full to confrontation throughout. Extraocular movement is intact no nystagmus is noted. Facial sensation is normal to touch throughout. The facial strength is normal throughout. Hearing is severely decreased bilaterally to hand rub. Tongue is midline and moved [id number] without any difficulty. No dysarthria is noted. Shoulder shrug is normal bilaterally. Motor: The strength is limited in left upper extremity since has left sling and tender to touch. Otherwise rest is 5/5 throughout. Normal tone and bulk. Has resting tremor on the right hand. Cerebellum: Normal finger to nose right. Sensation: Sensation is normal to touch throughout. Reflexes (right/left): 2+ over the right upper while lowers are 1+ and left upper was deferred since her pain. Plantars are mute bilaterally. Results - Laboratory Findings CBC and BMP: 01/02/22 09:52 01/02/22 09:52 Abnormal Lab Findings: Abnormal Labs 01/01/22 01/01/22 01/01/22 10:52 10:52 15:48 RBC 3.31 L Hgb 11.0 L Hct 33.6 L MCV 101.3 H Lymphocytes # 0.7 L Sodium BUN 18 H Glucose 111 H POC Glucose (mg/dL) 143 H 01/02/22 01/02/22 01/02/22 09:52 09:52 10:36 RBC 2.81 L Hgb 9.3 L D Hct 28.6 L MCV 101.7 H Lymphocytes # 0.9 L Sodium 136 L BUN 23 H Glucose 119 H POC Glucose (mg/dL) 127 H Assessment and Plan Assessment: Fall likely due to her Parkinson's disease Feeling lightheadeness/Presyncopal spell likely due to dysautonomia/autonomic dysfunction from Parkison's disease C5-C6 central compression Left olecrenon fracture due to fall Parkinson's disease History of falls Hypertension Hyperlipidemia History of neuropathy Polypharmacy Plan: I ordered hemoglobin A1c, vitamin B12, folate level. Recommend repeating orthostatic vitals I consulted the orthopedic surgery team for the cervical compression PT and OT are consulted Recommend possible consideration of tilt table test as an outpatient if unable to be completed as inpatient. 2-D echo was ordered by her team is pending I feel patient is on polypharmacy and recommend modification of medication by her neurologist and PCP as outpatient. We'll defer the rest of medical management to primary team Upon discharge the patient is to follow up with her neurologist (Alana Cohen) within 1-2 weeks The plan is discussed with the patient and primary team. Thank you consultation. Dr. Vela will start neurology service tomorrow Scott De León M.D. Neuro-Hospitalist Time with Patient: Greater than 30
[2022-01-03] MEDS: HEPARIN SODIUM,PORCINE/PF 5,000 UNIT/0.5 ML SYRINGE SQ SCH ×2 (10:42→20:47)
--- NOTE | 2022-01-03 13:28 | P.PN ---
Subjective Progress Note Date: 01/03/22 Principal diagnosis: fall Hospital course: 81-year-old female with past medical history of Parkinson's, anxiety, hypertension, dyslipidemia, chronic UTIs presented after a fall. She sustained a left olecranon fracture. Her elbow was casted and placed in a sling, and patient will follow-up with orthopedic surgery as an outpatient. However, while in the emergency as well as on the floors, patient has been complaining of lightheadedness/presyncopal episodes each time she stands. Subjective: Patient seen and examined at bedside. She claims that she only has pain at the left elbow when she moves. She continues to have lightheadedness after standing. She denies any nausea, vomiting, headache, abdominal pain, diarrhea or constipation fevers, chills, chest pain, shortness of breath, palpitations. Pertinent positives and negatives as discussed above, a complete review of systems was performed and all other systems are negative. Vital signs reviewed. General: nontoxic, no distress, appears at stated age Derm: warm, dry Head: atraumatic, normocephalic, symmetric Eyes: EOMI, no lid lag, anicteric sclera Mouth: no lip lesion, mucus membranes moist Cardiovascular: S1S2 reg, no murmur Lungs: Minimal rales at the bases bilaterally, no accessory muscle use Abdominal: soft, nontender to palpation, no guarding, no appreciable organomegaly Ext: no gross muscle atrophy, trace peripheral edema, no contractures, left elbow in a sling Neuro: CN II-XI grossly intact, no focal neuro deficits Psych: Alert, oriented, appropriate affect Assessment and plan: Presyncope/dysautonomia Elevated BUN Status post fall Left elbow fracture -Negative orthostatic vitals, repeat pending -On IV fluids for elevated BUN -Fall precautions -PT/OT consulted -echocardiogram -Neurology consulted - likely dysautonomia from Parkinson's disease -A consider tilt table test as an outpatient Macrocytic anemia -B12 and folic acid normal C5-C6 central compression -Orthopedics consulted by neurology Polypharmacy -will need to be addressed as outpatient by primary care as well as neurologist F: Normal saline at 75 mL/hour E: replete PRN N: Heart healthy A: With assistance DVT ppx: heparin SQ Full code Dispo: Patient is currently unsafe discharge given significant fall risk. She requires further workup for ongoing presyncope/lightheadedness. She will also n eed evaluation by physical therapy/occupational therapy. Objective - Vital Signs Vital signs: Vital Signs Temp 98.0 F 01/03/22 08:00 Pulse 85 01/03/22 08:00 Resp 18 01/03/22 08:00 BP 111/66 01/03/22 08:00 Pulse Ox 96 01/03/22 08:00 FiO2 Intake & Output 01/02/22 01/03/22 01/03/22 18:59 06:59 18:59 Intake Total 776 118 Balance 776 118 Intake: Oral 776 118 Other: Voiding Method Diaper Diaper Diaper # Voids 1 3 - Labs CBC & Chem 7: 01/02/22 09:52 01/02/22 09:52
[2022-01-03] MEDS: DONEPEZIL 10 MG TAB PO SCH (20:47)
[2022-01-04] MEDS: SODIUM CHLORIDE 0.9% 1,000 ML IV SCH (00:35)
[2022-01-04] MEDS: PANTOPRAZOLE 40 MG TABLET PO SCH (06:45)
[2022-01-04] MEDS: clonazePAM 0.5 MG TAB PO PRN ×2 (09:01→20:53)
[2022-01-04] MEDS: ASPIRIN 81 MG PO SCH (09:01)
[2022-01-04] MEDS: CARBIDOPA-LEVODOPA 25-100 MG 1 EACH TAB PO SCH ×4 (09:01→20:53)
[2022-01-04] MEDS: lamoTRIgine 100 MG TAB PO SCH ×2 (09:01→20:53)
[2022-01-04] MEDS: OXYBUTYNIN CHLORIDE 5 MG TAB PO SCH ×2 (09:01→20:53)
[2022-01-04] MEDS: amLODIPine 5 MG TAB PO SCH (09:01)
[2022-01-04] MEDS: HEPARIN SODIUM,PORCINE/PF 5,000 UNIT/0.5 ML SYRINGE SQ SCH (09:03)
--- NOTE | 2022-01-04 13:46 | P.CNOR ---
History of Present Illness - [facility] Consult date: 01/04/22 History of present illness: This patient is an 81-year-old female with a past medical history of Parkinson's disease that presented to [facility] emergency department on 01/01/22 after a fall at home. X-rays in the emergency department revealed a left olecranon and radial head fracture. She was placed into a splint and discharge orders were placed. Although, patient began to experience lightheadedness in the emergency department. Therefore, she was admitted under the care of internal medicine with a consult placed to neurology. Patient's CT head and neck obtained in the emergency department was read by radiology as normal, although upon further evaluation by Dr. De León, there was noted to be C5-C6 central compression. Orthopedic surgery was consulted for further evaluation of her C- spine, as well as her left elbow. Patient is examined bedside today. She states her elbow pain is well- controlled. She states she is not experiencing any neck pain. She denies numbness or tingling of the bilateral upper extremities. She has no complaints at this time. She is comfortable. Vital signs stable. Past Medical History Past Medical History: Hyperlipidemia, Hypertension, Musculoskeletal Disorder, Osteoarthritis (OA) Additional Past Medical History / Comment(s): CHRONIC UTI, BLADDER LEAKAGE-WEARS PADS., OCCASIONAL VERTIGO,COLITIS, BROKE HIP dec 2013, BACK & LEFT LEG PAIN., HX OF FX RIGHT SHOULDER. USES CANE FOR YASH. LEGS NEUROPATHY. STATES FALLS FREQUENTLY History of Any Multi-Drug Resistant Organisms: None Reported Past Surgical History: Bladder Surgery, Hysterectomy, Joint Replacement, Ortho pedic Surgery, Tonsillectomy, Tubal Ligation Additional Past Surgical History / Comment(s): BLADDER SUSPENSION W/ CYSTOCELE & RECTOCELE , LEFT SHOULDER SURGERY, LEFT HIP W/HARDWARE (2013). Past Anesthesia/Blood Transfusion Reactions: No Reported Reaction, Motion Sickness Past Psychological History: Anxiety Smoking Status: Never smoker Past Alcohol Use History: Occasional Past Drug Use History: None Reported - Past Family History Mother Family Medical History: Cancer Additional Family Medical History / Comment(s): BREAST & ESOPHAGUS CANCER Medications and Allergies Home Medications Medication Instructions Recorded Confirmed Type Pravastatin Sodium [Pravachol] 80 mg PO HS 10/03/13 01/01/22 History lamoTRIgine [LaMICtal] 100 mg PO BID 10/03/13 01/01/22 History Aspirin EC [Ecotrin Low Dose] 81 mg PO HS 08/27/15 01/01/22 History Ascorbic Acid [Vitamin C] 500 mg PO DAILY 01/01/22 01/01/22 History Calcium Carbonate [Calcium] 600 mg PO DAILY 01/01/22 01/01/22 History Carbidopa/Levodopa 1 tab PO QID@07,11,15,19 01/01/22 01/01/22 History [Carbidopa-Levodopa 25-100 Tab] DULoxetine HCL [Cymbalta] 60 mg PO HS 01/01/22 01/01/22 History Meloxicam [Mobic] 15 mg PO DAILY 01/01/22 01/01/22 History Menthol-Zinc Oxide Oint 1 applic TOPICAL BID 01/01/22 01/01/22 History [Calmoseptine Ointment] Multivit-Min/Iron/Folic/Lutein 1 tab PO DAILY 01/01/22 01/01/22 History [Centrum Silver Women Tablet] Omeprazole 40 mg PO DAILY 01/01/22 01/01/22 History Ondansetron Odt [Zofran Odt] 4 mg PO Q8HR PRN 7 Days #21 tab 01/01/22 Rx Oxybutynin Chloride 5 mg PO BID 01/01/22 01/01/22 History Rivastigmine Tartrate [Exelon] 3 mg PO BID 01/01/22 01/01/22 History Trimethoprim [Trimpex] 100 mg PO DAILY 01/01/22 01/01/22 History amLODIPine [Norvasc] 5 mg PO DAILY 01/01/22 01/01/22 History clonazePAM [Klonopin ODT] 0.25 mg PO BID PRN 01/01/22 01/01/22 History dexAMETHasone [Decadron Elixir] 0.5 mg PO BID PRN 01/01/22 01/01/22 History polyethylene glycoL 3350 [Miralax] 17 gm PO DAILY PRN 01/01/22 01/01/22 History traMADol HCL 50 mg PO Q6H 3 Days #12 tab 01/01/22 Rx Allergies Allergy/AdvReac Type Severity Reaction Status Date / Time morphine Allergy Nausea & Verified 01/01/22 16:59 Vomiting Sulfa (Sulfonamide AdvReac Unknown Nausea & Verified 01/01/22 16:59 Antibiotics) Vomiting mesalamine [From Lialda] AdvReac Hallucinations, Verified 01/01/22 16:59 aggression Physical Examination On examination, the patient is sitting up in bed in no apparent distress. She is alert and oriented 3. Her head appears normocephalic and atraumatic. Her breathing appears nonlabored. No pain with palpation of the C-spine. On inspection of her left upper extremity, there is a posterior splint in place and a sling. Motor and sensory function is intact of the left upper extremity. No pain to passive range of motion of the fingers. The visible portion of the hand and fingers are warm and well-perfused with brisk capillary refill distally. Radial pulse is palpable. Results Left elbow CT scan 01/01/22: Comminuted displaced fracture of the left olecranon with radial head fracture. - Labs Labs: H & H 01/01/22 01/02/22 Range/Units 10:52 09:52 Hgb 11.0 L 9.3 L D (11.4-16.0) gm/dL Hct 33.6 L 28.6 L (34.0-46.0) % Coagulation 01/01/22 Range/Units 10:52 INR 1.0 (<1.2) Result Diagrams: 01/02/22 09:52 01/02/22 09:52 Assessment and Plan Assessment: Left olecranon fracture Left radial head fracture C5-C6 central compression Plan: - The patient was discussed with Dr. Etienne, as well as Dr. Waite. In regards to her left elbow, no surgical intervention is planned at this time. Keep posterior splint in place along with a sling. She should remain non weightbearing on the left upper extremity. She will require follow-up in the office in 1 week for repeat x-rays of the left elbow. Continue pain management as needed. - Cervical spine MRI without contrast will be ordered for further evaluation and C5-C6 central compression. Patient will be further evaluated by Dr. Waite tomorrow in regards to her C-spine.
--- NOTE | 2022-01-04 14:48 | P.PN ---
Progress Note - Text Progress Note Date: 01/04/22 Hospital course: 81-year-old female with past medical history of Parkinson's, anxiety, hypertension, dyslipidemia, chronic UTIs presented after a fall. She sustained a left olecranon fracture. Her elbow was casted and placed in a sling, and patient will follow-up with orthopedic surgery as an outpatient. However, while in the emergency as well as on the floors, patient has been complaining of lightheadedness/presyncopal episodes each time she stands. Admitted with left elbow fracture secondary to fall. Dysautonomia from Parkinson's disease. January 04: I assumed care of patient today from [facility], [place] [facility], patient made inpatient yesterday Reclining in bed. Oral intake fair. Tremors from Parkinson's. PTOT pending. Patient somewhat reluctant to go to rehab if she qualifies. Did speak to her at length. Then came to the room for the patient and the at length. Await input from PTOT length with the patient decide how she does. Laying in the left arm. Cervical spine MRI ordered by orthopedics. Cervical collar Ordered:. Patient does not complain of any neck pain currently. Active Medications Acetaminophen (Acetaminophen Tab 325 Mg Tab) 650 mg PO Q6HR PRN PRN Reason: Mild Pain or Fever > 100.5 Last Admin: 01/03/22 20:46 Dose: 650 mg Amlodipine Besylate (Amlodipine 5 Mg Tab) 5 mg PO DAILY [facility] Last Admin: 01/04/22 09:01 Dose: 5 mg Aspirin (Aspirin 81 Mg) 81 mg PO DAILY [facility] Last Admin: 01/04/22 09:01 Dose: 81 mg Carbidopa/Levodopa (Carbidopa-Levodopa 25-100 Mg 1 Each Tab) 1 each PO QID [facility] Last Admin: 01/04/22 12:08 Dose: 1 each Clonazepam (Clonazepam 0.5 Mg Tab) 0.25 mg PO BID PRN PRN Reason: Anxiety Last Admin: 01/04/22 09:01 Dose: 0.25 mg Donepezil HCl (Donepezil 10 Mg Tab) 10 mg PO HS [facility] Last Admin: 01/03/22 20:47 Dose: 10 mg Heparin Sodium (Porcine) (Heparin Sodium,Porcine/Pf 5,000 Unit/0.5 Ml Syringe) 5,000 unit SQ Q12HR [facility] Last Admin: 01/04/22 09:03 Dose: 5,000 unit Sodium Chloride (Saline 0.9%) 1,000 mls @ 75 mls/hr IV .[id number] [facility] Last Admin: 01/04/22 00:35 Dose: Not Given Lamotrigine (Lamotrigine 100 Mg Tab) 100 mg PO BID [facility] Last Admin: 01/04/22 09:01 Dose: 100 mg Meclizine HCl (Meclizine 25 Mg Tab) 25 mg PO TID PRN PRN Reason: Vertigo Naloxone HCl (Naloxone 0.4 Mg/Ml 1 Ml Vial) 0.2 mg IV Q2M PRN PRN Reason: Opioid Reversal Ondansetron HCl (Ondansetron 4 Mg/2 Ml Vial) 4 mg IVP Q8HR PRN PRN Reason: Nausea And Vomiting Oxybutynin Chloride (Oxybutynin Chloride 5 Mg Tab) 5 mg PO BID [facility] Last Admin: 01/04/22 09:01 Dose: 5 mg Pantoprazole Sodium (Pantoprazole 40 Mg Tablet) 40 mg PO AC-BRKFST [facility] Last Admin: 01/04/22 06:45 Dose: 40 mg Tramadol HCl (Tramadol 50 Mg Tab) 50 mg PO Q6H PRN PRN Reason: Moderate Pain (Scale 4 to 6) Last Admin: 01/03/22 18:18 Dose: 50 mg On examination: VITAL SIGNS: [98.4, 71, 18, 140/73, 97% room air] GENERAL APPEARANCE: BMI 21.8, sitting in bed awake not in distress HEENT: Normal external appearance of nose and ear. Oral cavity normal EYES: Pupils equal. Conjunctiva normal. NECK: JVD not raised. Mass not palpable. RESPIRATORY: Respiratory effort normal. Lungs clear to auscultation. CARDIOVASCULAR: First and second sounds normal. No edema. MUSCULAR skeletal: Left arm in a sling. Evidence of OA in other joints. ABDOMEN: Soft. Liver and spleen not palpable. No tenderness. No mass palpable. PSYCHIATRY: Alert and oriented x3. Mood and affect normal. NEUROLOGICAL: Tremor present. INVESTIGATIONS, reviewed in the clinical context: White count 5.7 hemoglobin 9.3 platelets 191 progression 3.9 creatinine 1.03 B12 683 4 late greater than 20 EKG tracing personally reviewed by me-normal sinus rhythm. Nonspecific changes. CT left elbow: Impacted transverse fracture to the radial head. Moderate subcutaneous edema and hematoma along the dorsal aspect. Left shoulder x-ray complete: Chronic rotator cuff tear left shoulder. Left shoulder prosthesis. Assessment and plan: -Impacted transverse fracture to the radial head., Secondary to fall Left arm in a splint. An sling. No surgical intervention currently. -MRI cervical spine pending. Cervical collar ordered by orthopedics. -Hyperlipidemia Pravachol -Essential hypertension Norvasc -Primary osteoarthritis multiple joints bilaterally Mobic -Chronic urinary stress incontinence Dependence. -Autonomic dysfunction from Parkinson's disease, causing recurrent falls Fall precautions. -Acute medical debility secondary to fall. PTOT. -Peripheral neuropathy secondary Parkinson's -Chronic idiopathic Parkinson's disorder Exelon, Sinemet 2500 one tablet 4 times a day -Normocytic anemia. B12/folate both normal -GERD Omeprazole -Anxiety depression Cymbalta, Klonopin when necessary PTOT. Discussed length with the patient and with the and patient afterwards. As a nurse. We'll decide about rehab based on recommendations. Cervical spine MRI pending for orthopedics. Medications to continue. DC IV fluids. Total time spent today about 40 minutes including 25 minutes of discuss ion.
[2022-01-04] MEDS: traMADol 50 MG TAB PO PRN (18:49)
[2022-01-04] MEDS: DONEPEZIL 10 MG TAB PO SCH (20:53)
[2022-01-05] MEDS: SODIUM CHLORIDE 0.9% 1,000 ML IV SCH (02:44)
[2022-01-05] MEDS: PANTOPRAZOLE 40 MG TABLET PO SCH (06:18)
[2022-01-05] MEDS: clonazePAM 0.5 MG TAB PO PRN ×2 (08:16→20:55)
[2022-01-05] MEDS: ASPIRIN 81 MG PO SCH (08:16)
[2022-01-05] MEDS: CARBIDOPA-LEVODOPA 25-100 MG 1 EACH TAB PO SCH ×3 (08:16→21:00)
[2022-01-05] MEDS: amLODIPine 5 MG TAB PO SCH (08:16)
[2022-01-05] MEDS: OXYBUTYNIN CHLORIDE 5 MG TAB PO SCH ×2 (08:16→20:55)
[2022-01-05] MEDS: lamoTRIgine 100 MG TAB PO SCH ×2 (08:16→20:55)
[2022-01-05] MEDS: ENOXAPARIN 40 MG/0.4 ML SYRINGE SQ SCH (08:19)
--- NOTE | 2022-01-05 09:09 | P.PN ---
Progress Note - Text Progress Note Date: 01/05/22 Orthopedics: History of present illness: Patient is a very pleasant 81-year-old female who was seen and examined at bedside for follow-up evaluation in regards to her cervical spine and left elbow. Patient is known to have sustained a fall at home and presented to the emergency department on 01/01/2022. Imaging taken in the emergency department did show evidence of left olecranon fracture and left radial head fracture. She was placed in a splint with discharge orders. She then became lightheaded during her presentation in the emergency department and was admitted for further treatment and evaluation. CT imaging of the head and cervical spine was reviewed by Dr. De León in neurology who thought there may be evidence of cord compression at C5-6. She does have significant degenerative changes seen on CT imaging at her cervical spine. We were consulted for further evaluation regards to her cervical spine. Cervical MRI imaging was ordered yesterday. This has not yet been performed today. Patient states at the bedside is not experiencing any cervical pain or upper extremity radiculopathy or weakness. Most significantly, she has difficulty with her function of her left upper extremity given her left olecranon fracture and left radial head fracture. She is continue to keep her splint intact over the left upper extremity. Patient is currently waiting for evaluation with PT and OT with plans for discharge to a rehabilitation facility. Currently, patient does not feel she needs specific treatment in regards to her cervical spine. Patient is being seen and examined by medicine for her other multiple medical diagnoses including Parkinson's disease, hyperlipidemia, and hypertension. Physical exam: Patient is awake, alert, and oriented 3 Vital signs stable Good chest excursion with deep inspiration and expiration Examination of the cervical spine reveals skin is intact with no abrasions, lacerations, or bruises; no erythema, purulence or signs of infection Full range of motion of the cervical spine with adequate flexion, extension, and bilateral rotation Medical Registrar strength, thumb strength, interosseous strength, biceps strength, triceps strength, and shoulder strength positive sustained bilaterally Evidence of significant upper extremity tremor greater on the right than the left Adequate full range of motion of the right upper extremity without difficulty Patient is able to perform good range of motion of the left hand and fingers of the left hand without difficulty Hoffmans sign negative upper extremity bilaterally Splint over the left upper extremity remains intact Left upper extremity sling remains intact Assessment: Left olecranon fracture Left radial head fracture Evaluate possible cord compression C5-6; MRI of the cervical spine pending C4-5 anterior osteophytic spurring C4-5 spondylolisthesis C5-6 and C6-7 severe degenerative disease with anterior and posterior osteophytic spurring Reversal of normal cervical lordosis Parkinson's disease Plan: 1. Patient did sustain a fall at home resulting in an acute left olecranon fracture and left radial head fracture. She currently has a splint in a sling and intact with the left upper extremity. She will remain strict nonweightbearing with the left upper extremity. She should keep this splint clean, dry, and intact. She may elevate her left upper extremity for comfort and support as needed. She may apply ice over the left elbow and forearm for comfort support as needed She will plan for follow up evaluation with Dr. Reece Espinoza at [facility] in 1 week following discharge with repeat imaging to be taken at that time. Currently, we are planning for conservative treatment for her left upper extremity and are not currently planning for acute surgical intervention. 2. In regards to her cervical spine, MRI imaging of the cervical spine is currently pending. This was ordered yesterday but has not yet been performed. Hopefully this imaging is performed today. CT imaging of the cervical spine was reviewed by neurology who had some concern for some cord compression at C5-6 and the cervical MRI was then ordered after our consultation. She does have multilevel significant degenerative changes at her cervical spine that did not look acute in nature including multilevel degenerative disc disease with anterior osteophytic spurring and spondylolisthesis at C4-5. Clinically, patient does not appear to have any acute neurological decline in regards to her cervical spine. She is not experiencing any cervical pain. She has good range of motion of her cervical spine. She denies any upper extremity weakness or radiculopathy bilaterally. Most significantly, she has difficulty with her left upper extremity given her left olecranon fracture and left radial head fracture. She does not feel she has any changes in regards to her cervical spine following her fall. She is able to perform active range of motion of her hands and fingers bilaterally without difficulty. She has good range of motion of her right upper extremity. She does have limited range of motion of her left upper extremity given her left splint and sling placement. She does have bilateral upper extremity tremor greater on the right and a left with known Parkinson's disease. Currently, we are planning to continue conservative treatment options. We will plan to review her cervical MRI imaging once complete. We did discuss, following reviewing of her cervical MRI, if her MRI does not show significant findings requiring acute treatment, we would clear the patient for discharge to a rehabilitation facility. 3. Patient will continue to be seen and examined by multiple medical providers including neurology and medicine.
--- NOTE | 2022-01-05 09:20 | P.PN ---
Subjective Progress Note Date: 01/04/[address] Patient initially seen by Dr. Amari De León. Please refer to his note for details. Patient is a 81-year-old female who suffered from a fall likely due to Parkinson's disease. Patient's and daughter were also present today. Patient states that she was standing by the sink, turned to go to the living room, lost balance, started falling backwards, kept on stepping backwards to balance herself but still fell backwards. Patient denies passing out, no lightheadedness or presyncopal symptoms. Patient states that usually when she gets up she takes a minute or so before she starts walking. She says that she has been diagnosed with neuropathy in her feet for the last 5-6 years. She denies diabetes. Patient states that her mother does have a diagnosis of CMT, although never been tested genetically. Patient denies any constant numbness or tingling in the feet, only comes and goes. She says her feet get "red as fire" at night. Patient does not use any assistive device at home. She does have a walker and a cane of her mother's, but she is not using those. Patient has been diagnosed with Parkinson disease and frequent falls since 2017. She had an initial fall 5 years ago but was accidental due to tripping. Patient at present denies any lightheadedness, dizziness or spinning sensation. Patient follows up with Dr. Cohen in [facility]. Objective - Vital Signs Vital signs: Vital Signs Temp 98.4 F 01/04/22 12:10 Pulse 71 01/04/22 12:10 Resp 18 01/04/22 14:00 BP 145/73 01/04/22 12:10 Pulse Ox 97 01/04/22 12:10 FiO2 Intake & Output 01/03/22 01/04/22 01/04/22 18:59 06:59 18:59 Intake Total 354 100 240 Output Total 400 Balance 354 -300 240 Intake: Oral 354 100 240 Output: Urine 400 Other: Voiding Method Diaper Bedside Commode Bedside Commode Diaper Diaper # Voids 2 1 - Exam Patient's mental status, speech and language functions are normal. Cranial nerves are normal. Muscle strength normal in the right arm and both legs. Left arm not checked because of fracture. Reflexes are (right/left biceps 2/1, brachioradialis 1+/not checked, knee 1/1, ankles 0/0, plantar is up on the righ t, flat on the left. Sensory touch is equal. Tone is mild to moderately increased on the right side. She has mild tremors at rest noticed on the right. Her left arm is in a sling. Patient has high arched feet, and slight hammertoes. - Labs CBC & Chem 7: 01/02/22 09:52 01/02/22 09:52 Assessment and Plan Assessment: Fall likely due to losing balance related to her Parkinson's disease, and peripheral neuropathy. Feeling lightheadeness/Presyncopal spell likely due to dysautonomia/autonomic dysfunction from Parkison's disease C5-C6 central compression Left olecrenon fracture due to fall Parkinson's disease History of falls Hypertension Hyperlipidemia History of peripheral neuropathy Patient's mother with reported history of CMT Polypharmacy Plan: Hemoglobin A1c 5.5, vitamin B12 683, folate level > 20.0. Orthostatic vitals were checked, which are positive. Supine blood pressure was 127/71, sitting 154/73 and standing 130/75. If she has any presyncopal symptoms, then she may be a candidate for midodrine or Florinef. Orthopedic surgery team on board. MRI of the cervical spine pending. PT and OT are consulted 2-D echo was ordered by her team is pending Neurology will follow. Upon discharge the patient is to follow up with her neurologist (Alana Cohen) within 1-2 weeks
--- NOTE | 2022-01-05 09:34 | CA ---
Transthoracic Echo Report Name: Cele Bailey Age: 81 Gender: F : 1940 Exam Date: 01/02/2022 14:06 Exam Location: [place] [facility] Ht (in): 64 Wt (lb): 127 Ordering Physician: Reinier Morales MD Attending/Referring Phys: Upper Doubler Che Mora RDCS Procedure CPT: Indications: Pre-syncope Cardiac Hx: L Arm FX Technical Quality: Fair Contrast 1: Total Dose (mL): Contrast 2: Total Dose (mL): MEASUREMENTS (Male / Female) Normal Values 2D ECHO LV Diastolic Diameter PLAX 4.1 cm 4.2 - 5.9 / 3.9 - 5.3 cm LV Systolic Diameter PLAX 3.0 cm IVS Diastolic Thickness 1.0 cm 0.6 - 1.0 / 0.6 - 0.9 cm LVPW Diastolic Thickness 1.2 cm 0.6 - 1.0 / 0.6 - 0.9 cm LV Relative Wall Thickness 0.5 RV Internal Dim ED PLAX 2.5 cm M-MODE Aortic Root Diameter MM 2.5 cm LA Systolic Diameter MM 2.8 cm LA Ao Ratio MM 1.1 MV E Point Septal Separation 0.1 cm AV Cusp Separation MM 1.8 cm DOPPLER MV Area PHT 3.2 cm??? Mitral E Point Velocity 68.0 cm/s Mitral A Point Velocity 68.0 cm/s Mitral E to A Ratio 1.0 MV Deceleration Time 237.5 ms MV E' Velocity 3.8 cm/s Mitral E to MV E' Ratio 17.7 FINDINGS Left Ventricle Normal left ventricular size, wall thickness, left ventricular ejection fraction is estimated at 50-55 %. Right Ventricle The right ventricle is normal in size and function. Right Atrium The right atrium is normal in size. Left Atrium The left atrium is normal in size. Mitral Valve Structurally normal mitral valve without significant stenosis or prolapse. There is mild mitral regurgitation. Aortic Valve Structurally normal aortic valve without significant sclerosis or stenosis. There is no aortic regurgitation. Tricuspid Valve Structurally normal tricuspid valve without significant stenosis. Pulmonary artery systolic pressure is normal. Pulmonic Valve Structurally normal pulmonic valve without significant stenosis. There is no pulmonic regurgitation. Pericardium Normal pericardium without effusion. Aorta Normal aortic root dimension. CONCLUSIONS LV size is normal with fair systolic function. There is mild mitral and tricuspid insufficiency. No pericardial effusion Previewed by: Dr. Omer Chau MD (Electronically Signed) Final Date: 05 January 2022 09:33
[2022-01-05] MEDS ORDERED: LORazepam 1 MG/0.5 ML VIAL IV PRN (09:56)
[2022-01-05] MEDS ORDERED: LACTULOSE 20 GM/30 ML CUP PO ONE (11:17)
[2022-01-05] MEDS: PSYLLIUM HUSK 100% 6 GM PACKET PO SCH (11:28)
[2022-01-05] MEDS: DONEPEZIL 10 MG TAB PO SCH (20:55)
[2022-01-06 05:19] VITALS: TEMP 98.2
[2022-01-06] MEDS: PANTOPRAZOLE 40 MG TABLET PO SCH (06:38)
[2022-01-06] MEDS: OXYBUTYNIN CHLORIDE 5 MG TAB PO SCH (10:07)
[2022-01-06] MEDS: PSYLLIUM HUSK 100% 6 GM PACKET PO SCH (10:07)
[2022-01-06] MEDS: lamoTRIgine 100 MG TAB PO SCH (10:07)
[2022-01-06] MEDS: ENOXAPARIN 40 MG/0.4 ML SYRINGE SQ SCH (10:07)
[2022-01-06] MEDS: ASPIRIN 81 MG PO SCH (10:07)
[2022-01-06] MEDS: CARBIDOPA-LEVODOPA 25-100 MG 1 EACH TAB PO SCH ×2 (10:07→12:30)
[2022-01-06] MEDS: amLODIPine 5 MG TAB PO SCH (10:07)
[2022-01-06] MEDS: clonazePAM 0.5 MG TAB PO PRN (10:17)
--- NOTE | 2022-01-06 11:35 | P.PN ---
Subjective Progress Note Date: 01/06/22 Principal diagnosis: Left olecranon fracture. Left radial head fracture. C5-6 central compression. This patient is an 81-year-old female with a past medical history of Parkinson's disease that presented to [facility] emergency department on 01/01/22 after a fall at home. X-rays in the emergency department revealed a left olecranon and radial head fracture. She was placed into a splint and discharge orders were placed. Although, patient began to experience lightheadedness in the emergency department. Therefore, she was admitted under the care of internal medicine with a consult placed to neurology. Patient's CT head and neck obtained in the emergency department was read by radiology as normal, although upon further evaluation by Dr. De León, there was noted to be C5-C6 central compression. Orthopedic surgery was consulted for further evaluation of her C-spine, as well as her left elbow. Objective - Vital Signs Vital signs: Vital Signs Temp 98.2 F 01/06/22 09:11 Pulse 96 01/06/22 09:11 Resp 18 01/06/22 09:11 BP 127/82 01/06/22 09:11 Pulse Ox 97 01/06/22 09:11 FiO2 Intake & Output 01/05/22 01/06/22 01/06/22 18:59 06:59 18:59 Intake Total 118 Balance 118 Intake: Oral 118 Other: Voiding Method Bedside Commode Bedside Commode Diaper # Voids 1 1 1 # Bowel Movements 1 - Exam Patient is examined bedside today. She states her elbow pain is well- controlled. Splint and sling and place. She states she is not experiencing any neck pain. She denies numbness or tingling of the bilateral upper extremities. She has no complaints at this time. She is comfortable. Vital signs stable. - Labs CBC & Chem 7: 01/02/22 09:52 01/02/22 09:52 Assessment and Plan (1) Fall Current Visit: Yes Status: Acute Code(s): W19.XXXA - UNSPECIFIED FALL, INITIAL ENCOUNTER SNOMED Code(s): 5360790 (2) Fracture of olecranon process, left, closed Current Visit: Yes Status: Acute Code(s): S52.022A - DISP FX OF OLECRAN PRO W/O INTARTIC EXTN LEFT ULNA, INIT SNOMED Code(s): 75599320 Plan: The clinical findings are discussed with the patient. She may be discharged from the orthopedic standpoint. Please see discharge plan for instructions.
[2022-01-06 11:46] VITALS: BP 138/75; PULSE 98; RESP 16
--- NOTE | 2022-01-06 13:25 | P.PN ---
Progress Note - Text Progress Note Date: 01/05/22 Hospital course: 81-year-old female with past medical history of Parkinson's, anxiety, hypertension, dyslipidemia, chronic UTIs presented after a fall. She sustained a left olecranon fracture. Her elbow was casted and placed in a sling, and patient will follow-up with orthopedic surgery as an outpatient. However, while in the emergency as well as on the floors, patient has been complaining of lightheadedness/presyncopal episodes each time she stands. Admitted with left elbow fracture secondary to fall. Dysautonomia from Parkinson's disease. January 04: I assumed care of patient today from [facility], patient made inpatient yesterday Reclining in bed. Oral intake fair. Tremors from Parkinson's. PTOT pending. Patient somewhat reluctant to go to rehab if she qualifies. Did speak to her at length. Then came to the room for the patient and the at length. Await input from PTOT length with the patient decide how she does. Laying in the left arm. Cervical spine MRI ordered by orthopedics. Cervical collar Ordered:. Patient does not complain of any neck pain currently. January 05: Hospital computer system was down hence his note is being dictated day later. Pain is reasonably controlled. Oral intake fair. Denies any neck pain. Cervical spine MRI was done. Results pending. Oral intake fair.. Patient does not have any neck pain. No numbness of pain in the extremities. Or weakness. Current medications reviewed On examination: VITAL SIGNS: 97.8, 70, 18, 124/67, 95% room air GENERAL APPEARANCE: , sitting in bed awake , comfortable HEENT: Normal external appearance of nose and ear. Oral cavity normal EYES: Pupils equal. Conjunctiva normal. NECK: JVD not raised. Mass not palpable. RESPIRATORY: Respiratory effort normal. Lungs clear to auscultation. CARDIOVASCULAR: First and second sounds normal. No edema. MUSCULAR skeletal: Left arm in a sling. Evidence of OA in other joints. ABDOMEN: Soft. Liver and spleen not palpable. No tenderness. No mass palpable. PSYCHIATRY: Alert and oriented x3. Mood and affect normal. NEUROLOGICAL: Tremor present. INVESTIGATIONS, reviewed in the clinical context: White count 5.7 hemoglobin 9.3 platelets 191 progression 3.9 creatinine 1.03 B12 683 4 late greater than 20 EKG tracing personally reviewed by me-normal sinus rhythm. Nonspecific changes. CT left elbow: Impacted transverse fracture to the radial head. Moderate subcutaneous edema and hematoma along the dorsal aspect. Left shoulder x-ray complete: Chronic rotator cuff tear left shoulder. Left shoulder prosthesis. Assessment and plan: -Impacted transverse fracture to the radial head and left auricular and on., Secondary to fall Left arm in a splint. Arm sling. No surgical intervention currently. -MRI cervical spine pending. Cervical collar ordered by orthopedics. -Hyperlipidemia Pravachol -Essential hypertension Norvasc -Primary osteoarthritis multiple joints bilaterally Mobic -Chronic urinary stress incontinence Dependence. -Autonomic dysfunction from Parkinson's disease, causing recurrent falls Fall precautions. -Acute medical debility secondary to fall. PTOT. -Peripheral neuropathy secondary Parkinson's -Chronic idiopathic Parkinson's disorder Exelon, Sinemet 2500 one tablet 4 times a day -Normocytic anemia. B12/folate both normal -GERD Omeprazole -Anxiety depression Cymbalta, Klonopin when necessary Patient will be going to rehab. Hospital copy to system is down. MRI C-spine pending. Other medications to continue.
--- NOTE | 2022-01-06 13:52 | P.DS ---
Providers Date of admission: 01/03/22 15:02 Expected date of discharge: 01/06/22 Attending physician: Anton Hancock Consults: 01/02/22 17:12 Consult Physician Routine Consulting Provider: Amari De León Consult Reason/Comments: Hx of parkinson, has presyncope, unsure if related to autonomic dysfunction Do you want consulting provider notified?: Yes, Notify in am 01/03/22 14:41 Consult Physician Routine Consulting Provider: Reece Etienne Consult Reason/Comments: C5-C6 CENTRAL COMPRESSION Do you want consulting provider notified?: Yes Primary care physician: Lux Michaels [facility] Course: Hospital course: 81-year-old female with past medical history of Parkinson's, anxiety, hypertension, dyslipidemia, chronic UTIs presented after a fall. She sustained a left olecranon fracture. Her elbow was casted and placed in a sling, and patient will follow-up with orthopedic surgery as an outpatient. However, while in the emergency as well as on the floors, patient has been complaining of lightheadedness/presyncopal episodes each time she stands. Admitted with left elbow fracture secondary to fall. Dysautonomia from Parkinson's disease. January 04: I assumed care of patient today from [facility], patient made inpatient yesterday Reclining in bed. Oral intake fair. Tremors from Parkinson's. PTOT pending. Patient somewhat reluctant to go to rehab if she qualifies. Did speak to her at length. Then came to the room for the patient and the at length. Await input from PTOT length with the patient decide how she does. Laying in the left arm. Cervical spine MRI ordered by orthopedics. Cervical collar Ordered:. Patient does not complain of any neck pain currently. January 05: Hospital computer system was down hence his note is being dictated day later. Pain is reasonably controlled. Oral intake fair. Denies any neck pain. Cervical spine MRI was done. Results pending. Oral intake fair.. Patient does not have any neck pain. No numbness of pain in the extremities. Or weakness. January 06: Cervical spine MRI results noted. Patient has no neck symptoms or arm symptoms. Lab patient follow up with Dr. Waite from orthopedics. The medications to continue. Discussed with patient. Going to rehab. Discussion and discharge planning more than 35 minutes On examination: VITAL SIGNS: 98.2, 98, 16, 138/75, 100% room air GENERAL APPEARANCE: , sitting in bed awake , comfortable HEENT: Normal external appearance of nose and ear. Oral cavity normal EYES: Pupils equal. Conjunctiva normal. NECK: JVD not raised. Mass not palpable. RESPIRATORY: Respiratory effort normal. Lungs clear to auscultation. CARDIOVASCULAR: First and second sounds normal. No edema. MUSCULAR skeletal: Left arm in a sling. Evidence of OA in other joints. ABDOMEN: Soft. Liver and spleen not palpable. No tenderness. No mass palpable. PSYCHIATRY: Alert and oriented x3. Mood and affect normal. NEUROLOGICAL: Tremor present. INVESTIGATIONS, reviewed in the clinical context: Cervical spine MRI: Disc herniation with ventral call contacted mild compressive myelopathy. Multiple level DJD. Cord contact is minimal. My myelopathy. White count 5.7 hemoglobin 9.3 platelets 191 progression 3.9 creatinine 1.03 B12 683 4 late greater than 20 EKG tracing personally reviewed by me-normal sinus rhythm. Nonspecific changes. CT left elbow: Impacted transverse fracture to the radial head. Moderate subcutaneous edema and hematoma along the dorsal aspect. Left shoulder x-ray complete: Chronic rotator cuff tear left shoulder. Left shoulder prosthesis. Assessment and plan: -Impacted transverse fracture to the radial head and left olecranon Secondary to fall Left arm in a splint. Arm sling. No surgical intervention as per Dr. Etienne.. -Minimal spinal cord contact and mild compressive myelopathy with no symptoms. Was seen by Dr. Waite. Have the patient follow up outpatient. -Hyperlipidemia Pravachol -Essential hypertension Norvasc -Primary osteoarthritis multiple joints bilaterally Mobic -Chronic urinary stress incontinence Dependence. -Autonomic dysfunction from Parkinson's disease, causing recurrent falls Fall precautions. -Acute medical debility secondary to fall. PTOT. -Peripheral neuropathy secondary Parkinson's -Chronic idiopathic Parkinson's disorder Exelon, Sinemet 2500 one tablet 4 times a day -Normocytic anemia. B12/folate both normal -GERD Omeprazole -Anxiety depression Cymbalta, Klonopin when necessary. -Full code Disposition: [facility] Plan - Discharge Summary New Discharge Prescriptions: New traMADol HCL 50 mg PO Q6H 3 Days #12 tab Ondansetron Odt [Zofran Odt] 4 mg PO Q8HR PRN 7 Days #21 tab Psyllium Husk 100% [Metamucil Packet] 6 gm PO DAILY packet Acetaminophen Tab [Tylenol] 650 mg PO Q6HR PRN tab PRN Reason: Mild Pain Or Fever > 100.5 Continue lamoTRIgine [LaMICtal] 100 mg PO BID Pravastatin Sodium [Pravachol] 80 mg PO HS Aspirin EC [Ecotrin Low Dose] 81 mg PO HS DULoxetine HCL [Cymbalta] 60 mg PO HS Menthol-Zinc Oxide Oint [Calmoseptine Ointment] 1 applic TOPICAL BID Trimethoprim [Trimpex] 100 mg PO DAILY Multivit-Min/Iron/Folic/Lutein [Centrum Silver Women Tablet] 1 tab PO DAILY Calcium Carbonate [Calcium] 600 mg PO DAILY Ascorbic Acid [Vitamin C] 500 mg PO DAILY Rivastigmine Tartrate [Exelon] 3 mg PO BID Oxybutynin Chloride 5 mg PO BID Omeprazole 40 mg PO DAILY Meloxicam [Mobic] 15 mg PO DAILY Carbidopa/Levodopa [Carbidopa-Levodopa 25-100 Tab] 1 tab PO QID@,,, amLODIPine [Norvasc] 5 mg PO DAILY clonazePAM [Klonopin ODT] 0.25 mg PO BID PRN #6 tab PRN Reason: Anxiety Discontinued polyethylene glycoL 3350 [Miralax] 17 gm PO DAILY PRN PRN Reason: Constipation dexAMETHasone [Decadron Elixir] 0.5 mg PO BID PRN PRN Reason: inflammation in mouth, rinse Discharge Medication List Pravastatin Sodium [Pravachol] 80 mg PO HS 10/03/13 [History] lamoTRIgine [LaMICtal] 100 mg PO BID 10/03/13 [History] Aspirin EC [Ecotrin Low Dose] 81 mg PO HS 08/27/15 [History] Ascorbic Acid [Vitamin C] 500 mg PO DAILY 01/01/22 [History] Calcium Carbonate [Calcium] 600 mg PO DAILY 01/01/22 [History] Carbidopa/Levodopa [Carbidopa-Levodopa 25-100 Tab] 1 tab PO QID@,,,01/01/22 [History] DULoxetine HCL [Cymbalta] 60 mg PO HS 01/01/22 [History] Meloxicam [Mobic] 15 mg PO DAILY 01/01/22 [History] Menthol-Zinc Oxide Oint [Calmoseptine Ointment] 1 applic TOPICAL BID 01/01/22 [History] Multivit-Min/Iron/Folic/Lutein [Centrum Silver Women Tablet] 1 tab PO DAILY 01/01/22 [History] Omeprazole 40 mg PO DAILY 01/01/22 [History] Ondansetron Odt [Zofran Odt] 4 mg PO Q8HR PRN 7 Days #21 tab 01/01/22 [Rx] Oxybutynin Chloride 5 mg PO BID 01/01/22 [History] Rivastigmine Tartrate [Exelon] 3 mg PO BID 01/01/22 [History] Trimethoprim [Trimpex] 100 mg PO DAILY 01/01/22 [History] amLODIPine [Norvasc] 5 mg PO DAILY 01/01/22 [History] traMADol HCL 50 mg PO Q6H 3 Days #12 tab 01/01/22 [Rx] Acetaminophen Tab [Tylenol] 650 mg PO Q6HR PRN tab 01/06/22 [Rx] Psyllium Husk 100% [Metamucil Packet] 6 gm PO DAILY packet 01/06/22 [Rx] clonazePAM [Klonopin ODT] 0.25 mg PO BID PRN #6 tab 01/06/22 [Rx] Follow up Appointment(s)/Referral(s): Izabel Waite DO [Doctor of Osteopathic Medicine] - 2 Weeks Alana Cohen DO [REFERRING] - 1 Week Lux Michaels MD [Primary Care Provider] - 1-2 days Reece Etienne DO [Doctor of Osteopathic Medicine] - Activity/Diet/Wound Care/Special Instructions: 1. Keep sling intact over the left upper extremity 2. Keep splint at the left upper extremity clean, dry, and intact 3. Nonweightbearing left upper extremity Discharge Disposition: TRANSFER TO SNF/ECF
[2022-01-06 14:23] VITALS: BMI 21.8
--- NOTE | 2022-01-06 15:05 | P.PN ---
Progress Note - Text Progress Note Date: 01/06/22 Orthopedics: History of present illness: Patient is a very pleasant 81-year-old female who was seen and examined at bedside for follow-up evaluation in regards to her cervical spine and left elbow. Patient is known to have sustained a fall at home and presented to the emergency department on 01/01/2022. Imaging taken in the emergency department did show evidence of left olecranon fracture and left radial head fracture. She was placed in a splint with discharge orders. She then became lightheaded during her presentation in the emergency department and was admitted for further treatment and evaluation. CT imaging of the head and cervical spine was reviewed by Dr. De León in neurology who thought there may be evidence of cord compression at C5-6. She does have significant degenerative changes seen on CT imaging at her cervical spine. We were consulted for further evaluation regards to her cervical spine. Cervical MRI imaging was ordered previously and was performed. Due to connective issues with the computers at the hospital this i maging has not been able to be reviewed. We were contacted by radiology for these results. Patient states she has not had any change in her symptoms as compared to yesterday. Patient states at the bedside is not experiencing any cervical pain or upper extremity radiculopathy or weakness. Most significantly, she has difficulty with her function of her left upper extremity given her left olecranon fracture and left radial head fracture. She continues to keep her splint intact over the left upper extremity. Patient is currently planning for discharge to a rehabilitation facility today. Patient states she feels she is ready for discharge today. Patient states again at the bedside she does not feel she needs specific treatment in regards to her cervical spine. She states she does not want any invasive treatment in regards to her cervical spine. Patient is being seen and examined by medicine for her other multiple medical diagnoses including Parkinson's disease, hyperlipidemia, and hypertension. Physical exam: Patient is awake, alert, and oriented 3 Vital signs stable Good chest excursion with deep inspiration and expiration Examination of the cervical spine reveals skin is intact with no abrasions, lacerations, or bruises; no erythema, purulence or signs of infection Full range of motion of the cervical spine with adequate flexion, extension, and bilateral rotation Supervising Architect strength, thumb strength, interosseous strength, biceps strength, triceps strength, and shoulder strength positive sustained bilaterally Evidence of significant upper extremity tremor greater on the right than the left Adequate full range of motion of the right upper extremity without difficulty Patient is able to perform good range of motion of the left hand and fingers of the left hand without difficulty Hoffmans sign negative upper extremity bilaterally Splint over the left upper extremity remains intact Left upper extremity sling remains intact Pertinent studies: MRI of the cervical spine in which the report has been relayed and states per radiology: C4-5 disc herniation with ventral cord contact with mild compressive myelopathy; C5-6 moderate disc herniation with cord contact and mild compressive myelopathy; C6-7 right paracentral disc herniation with cord contact; multilevel degenerative disc disease Assessment: Left olecranon fracture Left radial head fracture Evaluate possible cord compression C5-6; MRI of the cervical spine pending C4-5 anterior osteophytic spurring C4-5 spondylolisthesis C5-6 and C6-7 severe degenerative disease with anterior and posterior osteophytic spurring C4-5 and C5-6 disc herniation with cord contact and mild compressive myelopathy per radiology report C6-7 right paracentral disc herniation Reversal of normal cervical lordosis Parkinson's disease Plan: 1. Patient did sustain a fall at home resulting in an acute left olecranon f racture and left radial head fracture. She currently has a splint in a sling and intact with the left upper extremity. She will remain strict nonweightbearing with the left upper extremity. She should keep this splint clean, dry, and intact. She may elevate her left upper extremity for comfort and support as needed. She may apply ice over the left elbow and forearm for comfort support as needed She will plan for follow up evaluation with Dr. Reece Espinoza at [facility] in 1 week following discharge with repeat imaging to be taken at that time. Currently, we are planning for conservative treatment for her left upper extremity and are not currently planning for acute surgical intervention. 2. In regards to her cervical spine, MRI imaging of the cervical spine has been performed this imaging is not available to be visualized. Report per radiology has been relayed and discusses compression at C4-5 and C5-6 and states there is mild compressive myelopathy. We are unsure if this compressive myelopathy is indicating that there is cervical myelomalacia at these levels. She does have multilevel significant degenerative changes at her cervical spine that did not look acute in nature including multilevel degenerative disc disease with anterior osteophytic spurring and spondylolisthesis at C4-5. Again, clinically, the patient does not appear to have any acute neurological decline in regards to her cervical spine. She is not experiencing any cervical pain. She has good range of motion of her cervical spine. She denies any upper extremity weakness or radiculopathy bilaterally. Most significantly, she has difficulty with her left upper extremity given her left olecranon fracture and left radial head fracture. She does not feel she has any changes in regards to her cervical spine following her fall. She is able to perform active range of motion of her hands and fingers bilaterally without difficulty. She has good range of motion of her right upper extremity. She does have limited range of motion of her left upper extremity given her left splint and sling placement. She does have bilateral upper extremity tremor greater on the right and a left with known Parkinson's disease. I do not think her findings on imaging are acute in nature. Currently, we are planning to continue conservative treatment options. Patient would like to continue conservative treatment as well. She does not need bracing at this time. From an orthopedic spine standpoint, patient is clear for discharge. We will plan to have her follow-up in the outpatient setting for further evaluation. JPatient may follow-up with Cristofer Bowles PA-C or Dr. Dejon Waite at [facility] in 2-3 weeks following discharge. Patient is clear for discharge to rehabilitation facility today. 3. Patient will continue to be seen and examined by multiple medical providers including neurology and medicine.
--- NOTE | 2022-01-06 16:50 | P.PN ---
Subjective Progress Note Date: 01/05/22 12/05/2021:. Patient sitting comfortably in the recliner. Patient had MRI of the cervical spine performed. No new symptoms. 12/04/2021: Patient initially seen by Dr. Amari De León. Please refer to his note for details. Patient is a 81-year-old female who suffered from a fall likely due to Parkinson's disease. Patient's and daughter were also present today. Patient states that she was standing by the sink, turned to go to the living room, lost balance, started falling backwards, kept on stepping backwards to balance herself but still fell backwards. Patient denies passing out, no lightheadedness or presyncopal symptoms. Patient states that usually when she gets up she takes a minute or so before she starts walking. She says that she has been diagnosed with neuropathy in her feet for the last 5-6 years. She denies diabetes. Patient states that her mother does have a diagnosis of CMT, although never been tested genetically. Patient denies any constant numbness or tingling in the feet, only comes and goes. She says her feet get "red as fire" at night. Patient does not use any assistive device at home. She does have a walker and a cane of her mother's, but she is not using those. Patient has been diagnosed with Parkinson disease and frequent falls since 2017. She had an initial fall 5 years ago but was accidental due to tripping. Patient at present denies any lightheadedness, dizziness or spinning sensation. Patient follows up with Dr. Cohen in [facility]. Objective - Vital Signs Vital signs: Vital Signs Temp 98.0 F 01/05/22 08:20 Pulse 77 01/05/22 08:20 Resp 18 01/05/22 08:20 BP 154/74 01/05/22 08:20 Pulse Ox 97 01/05/22 08:20 FiO2 Intake & Output 01/04/22 01/05/22 01/05/22 18:59 06:59 18:59 Intake Total 480 118 Output Total 400 Balance 80 118 Intake: Oral 480 118 Output: Urine 400 Other: Voiding Method Bedside Commode Bedside Commode Bedside Commode Diaper Diaper Diaper # Voids 1 1 - Exam Patient's mental status, speech and language functions are normal. Cranial nerves are normal. Muscle strength normal in the right arm and both legs. Left arm not checked because of fracture. Reflexes are (right/left biceps 2/1, brachioradialis 1+/not checked, knee 1/1, ankles 0/0, plantar is up on the right, flat on the left. Sensory touch is equal. Tone is mild to moderately increased on the right side. She has mild tremors at rest noticed on the right. Her left arm is in a sling. Patient has high arched feet, and slight hammertoes. - Labs CBC & Chem 7: 01/02/22 09:52 01/02/22 09:52 Assessment and Plan Assessment: Fall likely due to losing balance related to her Parkinson's disease, and peripheral neuropathy. Patient also has some degree of cervical spondylosis noted on MRI of the cervical spine, which may be contributing to loss of b alance. Feeling lightheadeness/Presyncopal spell likely due to dysautonomia/autonomic dysfunction from Parkison's disease Left olecrenon fracture due to fall Parkinson's disease History of falls Hypertension Hyperlipidemia History of peripheral neuropathy Patient's mother with reported history of CMT Polypharmacy Plan: Hemoglobin A1c 5.5, vitamin B12 683, folate level > 20.0. Orthostatic vitals were checked, which are questionable positive. Supine blood pressure was 127/71, sitting 154/73 and standing 130/75. If she has any presyncopal symptoms, then she may be a candidate for midodrine or Florinef. Orthopedic surgery team on board. MRI of the cervical spine completed, official report pending. On my review, there is no spinal stenosis. There is degenerative and bulging disc at C4-C5, C5-C6 level, and C6-C7. There is evidence of degenerative discs, and central bulging disks particularly at C3-C4, and) midline broad-based disc bulging at C5-C6 level. Orthopedic spine on the case. Patient does not have significant neck symptoms. PT and OT are consulted 2-D echo revealed left-ventricular size is normal with severe systolic function. There is mild mitral and tricuspid insufficiency. Neurologically clear, if cleared by orthopedic spine.
--- NOTE | 2022-01-07 11:42 | MR ---
MRI CERVICAL SPINE: CLINICAL HISTORY: Fall injury with pain. TECHNIQUE: Multiplanar, multisequence imaging of the cervical spine is performed without IV contrast. COMPARISON: CT cervical spine 4 days earlier. FINDINGS: Persistent slight levoconvex scoliosis centered upper thoracic spine with more prominent de xtroconvex scoliosis partially imaged centered in the mid to lower thoracic spine. Sagittal images of the cervical spine show the craniocervical junction to remain within normal limits. Reversal of norm al cervical curvature on sagittal images redemonstrated. Redemonstration of grade 1 anterolisthesis C 4 on C5. Redemonstration of slight grade 1 anterolisthesis C7 on T1. The cervical and upper thoracic spinal cord is normal in caliber and signal. The vertebral body heights remain normal. Mild to modera te disc space narrowing and spurring at C5-C6 and C6-C7 levels redemonstrated. The bone marrow signal intensity is within normal limits. Axial images are degraded by patient motion. Axial images at C2-C3 and C3-C4 level are felt within no rmal limits. Axial images at C4-C5 level show focal central disc protrusion effacing anterior thecal sac along wit h uncovertebral facet degenerative changes greater on the right causing mild right-sided neural mejia inal narrowing. Axial images at C5-C6 level broad-based right paracentral spur disc complex effacing the ventral late ral thecal sac up to ventral surface of spinal cord with marginal spurring causing moderate right and [id number] left-sided neural foraminal narrowing. Axial images at C6-C7 level showed broad based right paracentral spur disc complex effacing the ventr al lateral thecal sac. Patent bilateral neural foramina. Axial images at C7-T1 level shows spondylolisthesis with tiny right paracentral disc protrusion minim ally effacing the anterior thecal sac. Patent bilateral neural foramina. IMPRESSION: Scoliosis and reversed cervical curvature demonstrated. Multilevel degenerative changes g reatest in the mid to lower cervical spine as detailed above.
== END 2022-01-06 16:00 | DRG 563 ==
LOC: EC 10:30 → 4SSUR 16:43 → 3SCARD 18:48 → OBSVTOIN 01-03 15:02
PROVIDERS: ADMIT Hospitalist; ATTEND Hospitalist
DX: S52.022A Displaced fracture of olecranon process without intraarticular extension of left ulna, initial encounter for closed fracture (principal); G21.9 Secondary parkinsonism, unspecified; G95.20 Unspecified cord compression; S52.122A Displaced fracture of head of left radius, initial encounter for closed fracture; S01.91XA Laceration without foreign body of unspecified part of head, initial encounter; N39.3 Stress incontinence (female) (male); R29.6 Repeated falls; M50.223 Other cervical disc displacement at C6-C7 level; M47.812 Spondylosis without myelopathy or radiculopathy, cervical region; Z20.822 Contact with and (suspected) exposure to COVID-19; M43.12 Spondylolisthesis, cervical region; M19.91 Primary osteoarthritis, unspecified site; I10 Essential (primary) hypertension; K21.9 Gastro-esophageal reflux disease without esophagitis; G62.9 Polyneuropathy, unspecified; F41.9 Anxiety disorder, unspecified; I08.1 Rheumatic disorders of both mitral and tricuspid valves; F32.A Depression, unspecified; E86.0 Dehydration; E78.5 Hyperlipidemia, unspecified; D75.89 Other specified diseases of blood and blood-forming organs; D53.9 Nutritional anemia, unspecified; G90.1 Familial dysautonomia [Riley-Day]; R55 Syncope and collapse; Y92.000 Kitchen of unspecified non-institutional (private) residence as the place of occurrence of the external cause; Z79.1 Long term (current) use of non-steroidal anti-inflammatories (NSAID); Z79.82 Long term (current) use of aspirin; Z79.899 Other long term (current) drug therapy; Z87.440 Personal history of urinary (tract) infections; Z90.710 Acquired absence of both cervix and uterus; Z91.81 History of falling; W01.0XXA Fall on same level from slipping, tripping and stumbling without subsequent striking against object, initial encounter; Z79.01 Long term (current) use of anticoagulants; Z88.5 Allergy status to narcotic agent; Z88.2 Allergy status to sulfonamides; Z88.8 Allergy status to other drugs, medicaments and biological substances; Z98.51 Tubal ligation status
CPT/HCPCS: 36415; 70450; 72125; 72141; 73521; 80048; 80053; 82607; 82746; 83036; 85025; 85610; 87635; 93306; 96374; 99285